=== PATIENT | male | born 1965 | race Caucasian/White ===

== ENCOUNTER 2022-10-13 16:19 | Observation (INO) ==
[2022-10-13] MEDS ORDERED: SODIUM CHLORIDE 0.9% 1000ML 1,000 ML IV SCH (17:00)
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
[2022-10-13 17:24] LABS: Basophils # (auto) 0.07 K/uL (0-0.2); Basophils % (auto) 0.7 %; Eosinophils # (auto) 0.44 K/uL (0-0.50); Eosinophils % (auto) 4.5 %; Hemoglobin 15.9 g/dl (14.0-18.0); Immature Granulocytes # (auto) 0.02 K/uL (0.01-0.20); Immature Granulocytes % (auto) 0.2 %; Lymphocytes % (auto) 34.1 %; Mean Corpuscular Hemoglobin 30.2 pg (25.0-34.0); Mean Corpuscular Hgb Conc 34.6 g/dL (32.0-36.0); Mean Corpuscular Volume 87.3 fL (80.0-100.0); Mean Platelet Volume 10.9 fL (9.4-12.4); Monocytes # (auto) 0.86 K/uL (0.11-0.59); Monocytes % (auto) 8.9 %; Neutrophils # (auto) 4.99 K/uL (1.40-6.50); Neutrophils % (auto) 51.6 %; Platelet Count 316 K/uL (130-400); RDW Standard Deviation 44.7 fL (36.4-46.3); Red Blood Count 5.27 M/uL (4.70-6.10); White Blood Count 9.68 K/ul (4.8-10.8)
[2022-10-13 17:38] LABS: Alanine Aminotransferase 30 U/L (7-52); Albumin Globulin Ratio 1.4 (0.9-2); Albumin Level 4.4 gm/dl (3.4-5.0); Alkaline Phosphatase 112 U/L (34-104); Anion Gap 7 (3-11); Aspartate Aminotransferase 29 U/L (13-39); BUN Creatinine Ratio 10.2 (10-20); Bilirubin,Total 0.9 mg/dl (0.2-1.0); Blood Urea Nitrogen 11 mg/dl (6-23); Calcium 9.9 mg/dl (8.6-10.3); Carbon Dioxide 19 mmol/L (21-32); Chloride 106 mmol/L (98-107); Est GFR (African American) 86.6 ml/min; Est GFR (Non-African American) 74.7 ml/min; Globulin 3.1 gm/dl (2.5-4.0); Glucose 78 mg/dl (70-99(Fasting)); Potassium 4.1 mmol/L (3.5-5.1); Sodium 132 mmol/L (136-145); Total Protein 7.5 gm/dl (6.0-8.3)
[2022-10-13 17:45] LABS: Troponin I High Sensitivity 3.7 pg/ml (0-20)
[2022-10-13 18:02] LABS: Appearance Urine Clear (Clear); Bilirubin Urine Negative (Negative); Blood Urine Negative (Negative); Color Urine Yellow; Glucose Urine UA Negative (Negative); Ketones Urine Negative (Negative); Leukocyte Esterase Urine Negative (Negative); Nitrite Urine Negative (Negative); Protein Urine Negative (Negative); Specific Gravity Urine 1.004 (1.000-1.030); Urobilinogen Urine Negative (Negative); pH Urine 6.5 (4.5-7.5)
[2022-10-13] MEDS ORDERED: SODIUM CHLORIDE 0.9% 1000ML 1,000 ML IV ONE (18:40)
[2022-10-13 18:41] LABS: Amphetamines+Metham, Urine Neg (Neg); Barbiturates, Urine Neg (Neg); Benzodiazepine, Urine Neg (Neg); Cocaine, Urine Neg (Neg); MDMA (Ecstacy), Urine Neg (Neg); Methadone, Urine Neg (Neg); Opiate, Urine Neg (Neg); Phencyclidine, Urine Neg (Neg)
--- NOTE | 2022-10-13 19:30 | XRay Report ---
SINGLE VIEW CHEST CLINICAL HISTORY: Mental health clearance. FINDINGS: 2 AP, portable, semierect chest radiographs are compared to study dated 02/02/2021. The exam ination is degraded by portable technique and apical lordotic positioning. The cardiomediastinal silh ouette is unremarkable. The lungs and pleural spaces are clear. No pneumothorax is seen. The bony tho rax is grossly intact. IMPRESSION: No active disease in the chest. ACT 112: Negative or not required by law. Electronically signed by: Martin Medrano M.D. 10/13/2022 7:28 PM
[2022-10-13] MEDS ORDERED: LACTATED RINGER'S 1,000 ML IV ONE (19:53)
[2022-10-13 20:10] LABS: Acetaminophen < 3 ug/ml (10-30); Salicylate < 3.0 mg/dl (3.0-30)
[2022-10-13] MEDS ORDERED: THIAMINE HCL 100 MG in SYRINGE 9 ML IV STA (21:36)
[2022-10-13] MEDS ORDERED: LORazepam 2 MG/1 ML VIAL IV PRN (21:52)
[2022-10-13] MEDS ORDERED: NICOTINE 21 MG/24 HR TDSY TD STA (21:54)
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
[2022-10-13] MEDS ORDERED: ACETAMINOPHEN 325 MG TAB PO PRN (23:00)
[2022-10-13] MEDS ORDERED: oxyCODONE HCL IR 5 MG TAB (IMMEDIATE RELEASE) PO PRN (23:00)
[2022-10-14] MEDS: GABAPENTIN 300 MG CAP PO SCH ×2 (00:14→08:41)
[2022-10-14] MEDS: levETIRAcetam 500 MG TAB PO SCH ×2 (00:14→08:41)
[2022-10-14] MEDS ORDERED: MELATONIN 3 MG TAB PO PRN (03:09)
[2022-10-14 07:50] LABS: Basophils # (auto) 0.06 K/uL (0-0.2); Basophils % (auto) 1.1 %; Eosinophils # (auto) 0.31 K/uL (0-0.50); Eosinophils % (auto) 5.5 %; Hematocrit (blood only) 44.3 % (42.0-52.0); Hemoglobin 15.1 g/dl (14.0-18.0); Immature Granulocytes # (auto) 0.02 K/uL (0.01-0.20); Immature Granulocytes % (auto) 0.4 %; Lymphocytes % (auto) 42.7 %; Mean Corpuscular Hemoglobin 30.6 pg (25.0-34.0); Mean Corpuscular Hgb Conc 34.1 g/dL (32.0-36.0); Mean Corpuscular Volume 89.9 fL (80.0-100.0); Mean Platelet Volume 10.6 fL (9.4-12.4); Monocytes % (auto) 8.9 %; Neutrophils # (auto) 2.33 K/uL (1.40-6.50); Neutrophils % (auto) 41.4 %; Platelet Count 232 K/uL (130-400); RDW Coefficient of Variation 14.1 % (11.5-14.5); RDW Standard Deviation 45.7 fL (36.4-46.3); Red Blood Count 4.93 M/uL (4.70-6.10); White Blood Count 5.62 K/ul (4.8-10.8)
[2022-10-14 08:31] LABS: BUN Creatinine Ratio 9.4 (10-20); Calcium 8.9 mg/dl (8.6-10.3); Est GFR (African American) 124.2 ml/min; Est GFR (Non-African American) 107.2 ml/min; Potassium 4.4 mmol/L (3.5-5.1)
[2022-10-14] MEDS ORDERED: FOLIC ACID 1 MG TAB PO SCH (09:00)
[2022-10-14] MEDS ORDERED: ENOXAPARIN INJ 40 MG/0.4 ML SYR SQ SCH (09:00)
[2022-10-14] MEDS ORDERED: allopurinoL 100 MG TAB PO SCH (09:00)
[2022-10-14] MEDS ORDERED: THIAMINE HCL 100 MG TAB PO SCH (09:00)
[2022-10-14] MEDS ORDERED: ESCITALOPRAM OXALATE 20 MG TAB PO SCH (09:00)
[2022-10-14] MEDS ORDERED: NICOTINE 21 MG/24 HR TDSY TD SCH (09:00)
[2022-10-14] MEDS ORDERED: CYANOCOBALAMIN (B-12) 500 MCG TABLET PO SCH (09:00)
[2022-10-14] MEDS ORDERED: ATORVASTATIN 40 MG TAB PO SCH (09:00)
--- NOTE | 2022-10-14 10:43 | Electrocardiogram Report ---
Test Reason : Blood Pressure : / mmHG Vent. Rate : 072 BPM Atrial Rate : 072 BPM P-R Int : 146 ms QRS Dur : 078 ms QT Int : 378 ms P-R-T Axes : 044 -07 064 degrees QTc Int : 413 ms Normal sinus rhythm Nonspecific T wave abnormality Abnormal ECG When compared with ECG of 02-FEB-2021 13:50, Nonspecific T wave abnormality now evident in Anterolateral leads Confirmed by Amado Brownlee ([id number]) on 10/14/2022 10:42:54 AM Referred By: REFERRED SELF Confirmed By:Amado Brownlee
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
--- NOTE | 2022-10-14 14:40 | Discharge Summary ---
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 History is obtained from the patient and review of outpatient PCP records. Patient is a poor historian. Patient reports having suicidal ideations for the past 2 years since his has . He decided to call crisis today who advised him to come to the ED for further evaluation. Patient denies suicide attempt. Patient reports he has not been eating very much recently. History of chronic alcohol use however patient reports he quit drinking 1 month ago. Noted negative alcohol level today. Patient denies chest pain and shortness of breath. He reports feeling lightheaded and dizzy today however no syncopal event. No other recent illnesses, fevers, chills. He denies abdominal pain, nausea, vomiting, diarrhea. No urinary symptoms. In the ED, patient was found to be hypotensive. This improved with IVF. Labs unremarkable. Admission Exam Per Admitting Provider Constitutional: WD/WN, vitals as above Eyes: PERRL, conjunctivae normal, anicteric sclerae ENMT: external ear and nose normal, oropharynx normal Respiratory: normal respiratory effort; no respiratory distress Coarse breath sounds bilaterally with expiratory wheezing Cardiovascular: Rate/Rhythm: regular rate and regular rhythm Vessels: normal peripheral pulses Extremities: no edema Gastrointestinal (Abdomen): normal bowel sounds, soft, nontender, no hepatosplenomegaly Musculoskeletal: no cyanosis or clubbing, extremities motor strength 5/5 Skin: no rashes, warm and dry Neurologic: PERRL, EOMI, accommodation nl, no face palsy, no dysarthria Psychiatric: Orientation: alert and oriented x 3 Affect: + depressed affect Suicidal Thoughts: + reports suicidal thoughts Principal Diagnosis Depression with suicidal ideation, hypotension due to home antihypertensives and hypovolemia Discharge Exam General: Lying comfortably in bed, not in distress, on room air HEENT: EOMI, AKBAR, MMM Chest: Clear breath sounds bilaterally, no wheezes or crackles CVS: Regular rate and rhythm, normal heart sounds, no murmur Abdomen: Soft, non tender, not distended, normal bowel sounds Neuro: Awake, alert, oriented, conversing well, non focal Extremities: No cyanosis, clubbing or edema Psych: Calm, cooperative, depressed. On 1:1 Discharge Data Allergies Allergy/AdvReac Type Severity Reaction Status Date / Time pollen extracts Allergy Intermediate ITCHY, Verified 11/21/21 10:07 WATERY EYES, SNEEZING, CONGESTION acetaminophen [From Tylenol] AdvReac Severe PER PT Verified 11/21/21 10:07 "LIVER DAMAGE" UNABLE TO TAKE Consultations 10/13/22 19:50 ED Decision to Admit Stat 10/13/22 23:00 Consult Psychiatry Routine Ordered Studies Laboratory Results WBC 5.62 K/ul (4.8-10.8) 10/14/22 07:11 RBC 4.93 M/uL (4.70-6.10) 10/14/22 07:11 Hgb 15.1 g/dl (14.0-18.0) 10/14/22 07:11 Hct 44.3 % (42.0-52.0) 10/14/22 07:11 MCV 89.9 fL (80.0-100.0) 10/14/22 07:11 MCH 30.6 pg (25.0-34.0) 10/14/22 07:11 MCHC 34.1 g/dL (32.0-36.0) 10/14/22 07:11 RDW Std Deviation 45.7 fL (36.4-46.3) 10/14/22 07:11 RDW Coeff of Nan 14.1 % (11.5-14.5) 10/14/22 07:11 Plt Count 232 K/uL (130-400) 10/14/22 07:11 MPV 10.6 fL (9.4-12.4) 10/14/22 07:11 Immature Gran % (Auto) 0.4 % 10/14/22 07:11 Neut % (Auto) 41.4 % 10/14/22 07:11 Lymph % (Auto) 42.7 % 10/14/22 07:11 Emmet % (Auto) 8.9 % 10/14/22 07:11 Eos % (Auto) 5.5 % 10/14/22 07:11 Baso % (Auto) 1.1 % 10/14/22 07:11 Neut # (Auto) 2.33 K/uL (1.40-6.50) 10/14/22 07:11 Lymph # (Auto) 2.40 K/uL (1.2-3.4) 10/14/22 07:11 Emmet # (Auto) 0.50 K/uL (0.11-0.59) 10/14/22 07:11 Eos # (Auto) 0.31 K/uL (0-0.50) 10/14/22 07:11 Baso # (Auto) 0.06 K/uL (0-0.2) 10/14/22 07:11 Immature Gran # (Auto) 0.02 K/uL (0.01-0.20) 10/14/22 07:11 Sodium 141 mmol/L (136-145) D 10/14/22 07:11 Potassium 4.4 mmol/L (3.5-5.1) 10/14/22 07:11 Chloride 113 mmol/L (98-107) H 10/14/22 07:11 Carbon Dioxide 22 mmol/L (21-32) 10/14/22 07:11 Anion Gap 6 (3-11) 10/14/22 07:11 BUN 6 mg/dl (6-23) 10/14/22 07:11 Creatinine 0.64 mg/dl (0.6-1.4) D 10/14/22 07:11 Est Cr Clr Drug Dosing 96.0 ml/min 10/14/22 07:11 Est GFR ( Amer) 124.2 ml/min 10/14/22 07:11 Est GFR (Non-Af Amer) 107.2 ml/min 10/14/22 07:11 BUN/Creatinine Ratio 9.4 (10-20) L 10/14/22 07:11 Glucose 99 mg/dl (70-99(Fasting)) 10/14/22 07:11 Lactate 1.0 mmol/L (0.4-2.0) 10/13/22 20:25 Calcium 8.9 mg/dl (8.6-10.3) 10/14/22 07:11 Total Bilirubin 0.9 mg/dl (0.2-1.0) 10/13/22 16:47 AST 29 U/L (13-39) 10/13/22 16:47 ALT 30 U/L (7-52) 10/13/22 16:47 Alkaline Phosphatase 112 U/L (34-104) H 10/13/22 16:47 Troponin I High Sens 3.7 pg/ml (0-20) 10/13/22 16:47 Total Protein 7.5 gm/dl (6.0-8.3) 10/13/22 16:47 Albumin 4.4 gm/dl (3.4-5.0) 10/13/22 16:47 Globulin 3.1 gm/dl (2.5-4.0) 10/13/22 16:47 Albumin/Globulin Ratio 1.4 (0.9-2) 10/13/22 16:47 TSH 4.127 uIu/ml (0.300-4.500) 10/13/22 16:47 Random Cortisol 5.79 mcg/dl 10/13/22 16:47 Urine Color Yellow 10/13/22 17:50 Urine Appearance Clear (Clear) 10/13/22 17:50 Urine pH 6.5 (4.5-7.5) 10/13/22 17:50 Ur Specific [place] 1.004 (1.000-1.030) 10/13/22 17:50 Urine Protein Negative (Negative) 10/13/22 17:50 Urine Glucose (UA) Negative (Negative) 10/13/22 17:50 Urine Ketones Negative (Negative) 10/13/22 17:50 Urine Blood Negative (Negative) 10/13/22 17:50 Urine Nitrite Negative (Negative) 10/13/22 17:50 Urine Bilirubin Negative (Negative) 10/13/22 17:50 Urine Urobilinogen Negative (Negative) 10/13/22 17:50 Ur Leukocyte Esterase Negative (Negative) 10/13/22 17:50 Salicylates < 3.0 mg/dl (3.0-30) L 10/13/22 16:47 Urine Opiates Screen Neg (Neg) 10/13/22 17:50 Ur Methadone, Qual Neg (Neg) 10/13/22 17:50 Acetaminophen < 3 ug/ml (10-30) L 10/13/22 16:47 Urine Barbiturates Neg (Neg) 10/13/22 17:50 Ur Phencyclidine (PCP) Neg (Neg) 10/13/22 17:50 U Amphetamin/Meth Scrn Neg (Neg) 10/13/22 17:50 MDMA (Ecstasy) Screen Neg (Neg) 10/13/22 17:50 U Benzodiazepines Scrn Neg (Neg) 10/13/22 17:50 Ur Cocaine Metabolite Neg (Neg) 10/13/22 17:50 U Marijuana (THC) Screen Pos (Neg) H 10/13/22 17:50 Ethyl Alcohol mg/dL < 10.0 mg/dl (<10.0) 10/13/22 16:47 SARS-CoV-2, RNA, NAAT NEGATIVE (NEGATIVE) 10/13/22 17:00 Impressions Chest X-Ray 10/13/22 16:50 SINGLE VIEW CHEST CLINICAL HISTORY: Mental health clearance. FINDINGS: 2 AP, portable, semierect chest radiographs are compared to study dated 02/02/2021. The examination is degraded by portable technique and apical lordotic positioning. The cardiomediastinal silhouette is unremarkable. The lungs and pleural spaces are clear. No pneumothorax is seen. The bony thorax is grossly intact. IMPRESSION: No active disease in the chest. ACT 112: Negative or not required by law. Electronically signed by: Martin Medrano M.D. 10/13/2022 7:28 PM Hospital Course (1) Depression with suicidal ideation: Plan Depression with suicidal ideation- details as the progress note from today. On 1:1. Seen by Psych and being discharged to psych facility for stabilization and safety and meds adjustment. Recommendations noted- continue all [facility] med[facility] exce pt for doxepin which was discontinued due to concern for cardiotoxicity per [facility]. Insomnia- on remeron. Further management per psych. Might benefit from trazodone or melatonin.. Tobacco abuse- Smokes <2 ppd. On nicoderm patch- recommended continuing at psych facility H/o alcohol abuse- sober for >1 month as he could not afford. Hypotension on admission- resolved. Likely due to poor oral intake and his home antihypertensive. Recommend to continue to hold his home antihypertensive and resume one at a time if BP rebounds- this was communicated to psychiatry team. COPD- baseline wheezing. Still smoking. nebs prn. No SOB or hypoxia. seizure disorder, history of traumatic brain injury- on Keppra. Patient is stable to discharge to psych facility. Total Time Total Time Spent Total Time Spent (In Minutes): 35 Discharge Plan Discharge Items Patient Disposition: Home - Self-Care Reason For Visit: HYPOTENSION Discharge Diagnosis: Depression with suicidal ideation Activity: Resume your previous activity Non-emergency contact: Primary Care Provider and Psychiatrist Call non-emergency contact if: you have any medication questions and your symptoms worsen Follow-up/Referrals: Florin Jama MD [Primary Care Provider] - Diet: Regular Addtl Attending Provider Instructions: You are being discharged to psychiatric facility due to your underlying mental health issues. We recommend holding your blood pressure medication due to low blood pressure upon admission and poor oral intake. If BP rebounds, recommend resuming one at a time to make sure it does not tank down. This will be managed by your doctors. We wish you all the best Pending Studies at Discharge: No Stand-Alone Forms: My [facility], Smoking Cessation Medications and DC Order Prescriptions: Continued gabapentin [Neurontin] 300 mg Capsule 300 mg PO BID escitalopram oxalate [Lexapro] 20 mg Tablet 20 mg PO QAM levetiracetam [Keppra] 500 mg Tablet 500 mg PO BID Qty: 60 2RF atorvastatin 40 mg Tablet 40 mg PO QAM thiamine HCl (vitamin B1) 100 mg tablet 100 mg PO DAILY mirtazapine 15 mg tablet 15 mg PO 1XD cyanocobalamin (vitamin B-12) 1,000 mcg Tablet 1,000 mcg PO DAILY allopurinol 100 mg tablet 100 mg PO DAILY folic acid 1 mg Tablet 1 mg PO DAILY Discontinued clonidine HCl 0.1 mg Tablet 0.1 mg PO BID lisinopril 20 mg Tablet 20 mg PO QAM doxepin 50 mg capsule 50 mg PO QAM nifedipine 30 mg tablet extended release 24hr 30 mg PO DAILY potassium chloride 20 mEq Tablet Extended Release 20 meq PO BID Discharge Orders: Discharge Order (Routine); Ordered 10/14/22 Ordered By: Marv Hernadez Admission Data Admit Date/Time: 10/13/22 21:50 Attending Provider: Marv Hernadez Admit Provider: Isaias Kearns Primary Care Provider: Florin Jama Other Providers: Isaias Kearns ; Carmen Hirsch ; Ursula Blunt ; Azar Carter
[2022-10-14] MEDS ORDERED: traZODone HCL 50 MG TAB PO SCH (21:00)
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
[2022-10-16 08:33] LABS: Marijuana Quant, GCMS Urine 112 ng/mL (<5)
== END 2022-10-14 16:16 ==
LOC: ED 16:19 → INTOOBSV 21:50 → 2S 21:50 → 3W 10-14 14:40

== ENCOUNTER 2022-10-14 15:17 | Inpatient (IN) ==
[2022-10-14] MEDS ORDERED: MAGNESIUM HYDROXIDE SUSP 30 ML UDC PO PRN (15:27)
[2022-10-14] MEDS ORDERED: hydrOXYzine HCl 25 MG TAB PO PRN ×2 (15:27)
[2022-10-14] MEDS ORDERED: ALUMINUM/MAGNESIUM SUSP 30 ML UDC PO PRN (15:27)
[2022-10-14] MEDS ORDERED: BISMUTH SUBSALICYLATE LIQD 236 ML PO PRN (15:27)
[2022-10-14] MEDS ORDERED: SODIUM CHLORIDE 0.65% NA SOLN 45 ML (OCEAN) PRN (15:27)
[2022-10-14] MEDS ORDERED: NICOTINE POLACRILEX 2 MG GUM MT PRN (16:52)
[2022-10-14] MEDS ORDERED: Patient's HEIGHT &/or WEIGHT Needed SCH (17:00)
[2022-10-14] MEDS: IBUPROFEN 600 MG TAB PO PRN (20:08)
[2022-10-14] MEDS: GABAPENTIN 300 MG CAP PO SCH (20:59)
[2022-10-14] MEDS: levETIRAcetam 500 MG TAB PO SCH (21:00)
[2022-10-14] MEDS: MIRTAZAPINE TAB 15 MG TAB PO SCH (21:00)
[2022-10-15] MEDS: GABAPENTIN 300 MG CAP PO SCH ×2 (08:54→21:01)
[2022-10-15] MEDS: allopurinoL 100 MG TAB PO SCH (08:54)
[2022-10-15] MEDS: levETIRAcetam 500 MG TAB PO SCH ×2 (08:54→21:01)
[2022-10-15] MEDS: NICOTINE 21 MG/24 HR TDSY TD SCH (08:54)
[2022-10-15] MEDS: ESCITALOPRAM OXALATE 20 MG TAB PO SCH (08:55)
[2022-10-15] MEDS: IBUPROFEN 600 MG TAB PO PRN ×2 (09:06→21:05)
[2022-10-15 09:19] LABS: Vitamin D, 25 Hydrox 11.6 ng/ml (30-100)
[2022-10-15] MEDS: ERGOCALCIFEROL 50,000 UNITS 1250 MCG CAP PO SCH (13:04)
[2022-10-15] MEDS: MIRTAZAPINE TAB 15 MG TAB PO SCH (21:01)
[2022-10-15] MEDS ORDERED: MIRTAZAPINE TAB 15 MG TAB PO SCH (22:00)
[2022-10-16] MEDS: NICOTINE 21 MG/24 HR TDSY TD SCH (08:38)
[2022-10-16] MEDS: ESCITALOPRAM OXALATE 20 MG TAB PO SCH (08:39)
[2022-10-16] MEDS: allopurinoL 100 MG TAB PO SCH (08:39)
[2022-10-16] MEDS: levETIRAcetam 500 MG TAB PO SCH ×2 (08:40→20:54)
[2022-10-16] MEDS: GABAPENTIN 300 MG CAP PO SCH ×2 (08:40→20:54)
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
[2022-10-16] MEDS: lisinopril 20 MG TAB PO SCH (14:03)
--- NOTE | 2022-10-16 14:13 | Psychiatric Progress Note ---
Date of Service October 16, 2022 Impression / Recommendations Impression 57 y/o man with heavy alcohol use history and history of seizure disorder who presents reporting 2 years' depression and intrusive suicidal thoughts in the context of his 's 2 years ago and current severe financial stressors. He's been treated with an SSRI for "depression and anxiety", though it's unclear whether he's evidenced mood symptoms while sober in the past. He appears to have some cognitive impairment consistent with chronic alcohol abuse, previous brain injury, or severe depression. Etiology of depression is unclear - this could represent a major depressive episode, mood disorder with depressive symptoms due to alcohol, mood symptoms due to chronic encephalopathy, or some combination. 10/16/2022: Continues to evidence poor short-term memory (still doesn't think he's using any psychiatric medication, for example) and limited awareness of his needs and resources. One example of this is his saying he "can't walk" due to gout (which he has) but being entirely unaware of his cerebellar ataxia and the fact that his gait is unsteady. Poor recall of previous meetings and discussions with me. It seems increasingly likely that he has chronic memory impairment, possibly as a result of heavy chronic alcohol use, and that he may not be able to meet his care needs alone at home. Appears to be tolerating escitalopram. Continues to complain of initial insomnia on mirtazapine 7.5 mg. It's important to note that pt attributes his drinking to his need to use alcohol for sleep, and that he's previously reported no benefit from any medication he's been prescribed for sleep. Has now been started on ergocalciferol after 25-OH vitamin D level was found to be 11.6 ng/mL. BP has fairly consistently been elevated. Hospitalists had stopped his antihypertensives. Will resume lisinopril and consider resuming clonidine. : Pt is psychiatrically unstable and requires psychiatric admission for stabilization and safety, as well as medication adjustment. (1) Depression, unspecified (2) Alcohol use disorder, severe, dependence (1) Depression, unspecified: Present on Admission?: Yes (2) Alcohol use disorder, severe, dependence: Present on Admission?: Yes (3) Vitamin D deficiency: Present on Admission?: Yes Plan The patient was admitted to the [facility] ([facility] unit) on q15 min checks (behavioral with suicide precautions) for safety. The patient will participate in group, recreational, and milieu therapies and will be offered additional individual and family sessions as clinically appropriate. 10/16/2022: * request Occupational Therapy assessment of pt's ability perform ADL's and of the likelihood that he can safely live alone * continue escitalopram 20 mg daily * increase mirtazapine to 15 mg QHS (for sleep) * resume lisinopril 20 mg daily * continue ergocalciferol 50,000 IU twice weekly for 8 weeks * continue gabapentin 300 mg BID (as anticonvulsant) * continue levetiracetam 500 mg PID (as anticonvulsant) * A private room remains medically necessary for the safety of self and others due to his irritability and cerebellar ataxia 10/15/2022: * strive to obtain information from pt's outpatient therapist (if, in fact, he has one) * continue escitalopram 20 mg daily * continue mirtazapine 7.5 mg QHS (for sleep) * ergocalciferol 50,000 IU twice weekly for 8 weeks * continue gabapentin 300 mg BID (as anticonvulsant) * continue levetiracetam 500 mg PID (as anticonvulsant) * A private room remains medically necessary for the safety of self and others due to his irritability and cerebellar ataxia Inventory Assets Strengths: voluntary Needs: safety and stabilization, medication adjustment, additional coping skills, increased outpatient services, case management Suicide Risk Level Suicide Risk Level: High-Moderate (q15 min suicide checks) Suicide Risk Level Comments: has reported consistent suicidal thoughts with multiple possible "means" of acting upon them, none available in the hospital Risk Factors Assessment Do You Have Access To A Gun?: No Interval History Identifying Information AIDA CANELA is a 57-year-old M who currently lives in alone, has a history of alcohol dependence, and was admitted on 10/14/22 16:21 on a 201 voluntary commitment for suicidal thoughts. Chief Complaint "I have nowhere to go". Review of Systems Sleep Information Total Hours of Sleep: 4.75 Sleep Comments: Received Vistaril for difficulty sleeping Meal Information Percent Meal Consumed - Breakfast: 100 Percent Meal Consumed - Lunch: 100 Percent Meal Consumed - Dinner: 95 Subjective Subjective Patient was seen & assessed and interval progress reviewed in multidisciplinary meeting with the treatment team Physical Exam Psychiatric Orientation: alert, oriented to person, oriented to place and oriented to time Apperance: + disheveled; + did not appear stated age (appears older than stated age) Eye Contact: + poor eye contact Motor Behavior: + psychomotor retardation Speech: + abnormal rate/rhythm/volume of speech (increased latency of response, slow, quiet, brief) Affect: + blunted affect Mood: + anxious mood and + dysphoric mood Thought Process: + concrete thought process Thought Content: + preoccupation (financial strains), + cognitive distortions and + persecution (bank account "maybe being drained" by others) Suicidal Thoughts: denies suicidal intent; + reports suicidal thoughts and + reports suicidal plan (various automotive-related "means" reported; see admission HPI) Homicidal Thoughts: denies homicidal thoughts (mentioned vague thoughts he "could have killed 50 asians" at the bus stop) Hallucinations: + visual hallucinations ("maybe"); no auditory hallucinations and no tactile hallucinations Cognition: language grossly intact; + recent memory not intact, + remote memory not intact and + attention not intact Estimated Intelligence: average estimated intelligence Insight: + poor insight Judgment: + limited judgement Vital Signs (Past 24 Hours) Last Vital Signs Temp 36.5 C 10/16/22 06:44 Pulse 62 10/16/22 06:44 Resp 16 10/16/22 06:44 BP 176/111 H 10/16/22 06:44 Pulse Ox 96 10/14/22 17:44 O2 Del Method Room Air 10/14/22 17:44 Results & Data ([facility]) Current Inpatient Medications Current Inpatient Medications: Current Inpatient Medications Al Hydrox/Mg Hydrox/Simethicone (Aluminum/Magnesium Susp 30 Ml Udc) 30 ml PO Q4H PRN PRN Reason: GI Upset Stop: 11/13/22 15:26 Allopurinol (Allopurinol 100 Mg Tab) 100 mg PO DAILY [facility] Stop: 11/14/22 08:59 Last Admin: 10/16/22 08:39 Dose: 100 mg Bismuth Subsalicylate (Bismuth Subsalicylate Liqd 236 Ml) 15 ml PO PRN PRN PRN Reason: Loose Stool Stop: 11/13/22 15:26 Ergocalciferol (Ergocalciferol 50,000 Units 1250 Mcg Cap) 50,000 units PO SuWe@0900 [facility] Stop: 11/14/22 12:59 Last Admin: 10/15/22 13:04 Dose: 50,000 units Escitalopram Oxalate (Escitalopram Oxalate 20 Mg Tab) 20 mg PO QAM [facility] Stop: 11/14/22 08:59 Last Admin: 10/16/22 08:39 Dose: 20 mg Gabapentin (Gabapentin 300 Mg Cap) 300 mg PO BID [facility] Stop: 11/13/22 20:59 Last Admin: 10/16/22 08:40 Dose: 300 mg Hydroxyzine HCl (Hydroxyzine Hcl 25 Mg Tab) 50 mg PO HSZ PRN PRN Reason: Insomnia Stop: 11/13/22 15:26 Last Admin: 10/16/22 01:09 Dose: 50 mg Hydroxyzine HCl (Hydroxyzine Hcl 25 Mg Tab) 25 mg PO Q4H PRN PRN Reason: Anxiety Stop: 11/13/22 15:26 Ibuprofen (Ibuprofen 600 Mg Tab) 600 mg PO QID PRN PRN Reason: Pain Stop: 11/13/22 20:59 Last Admin: 10/15/22 21:05 Dose: 600 mg Levetiracetam (Levetiracetam 500 Mg Tab) 500 mg PO BID [facility] Stop: 11/13/22 20:59 Last Admin: 10/16/22 08:40 Dose: 500 mg Magnesium Hydroxide (Magnesium Hydroxide Susp 30 Ml Udc) 30 ml PO DAILY PRN PRN Reason: Constipation Stop: 11/13/22 15:26 Mirtazapine (Mirtazapine Tab 15 Mg Tab) 7.5 mg PO HS [facility] Stop: 11/13/22 21:59 Last Admin: 10/15/22 21:01 Dose: 7.5 mg Miscellaneous (Remove Nicoderm Patch) 1 each N/A DAILY@0859 [facility] Stop: 11/14/22 08:58 Last Admin: 10/16/22 08:42 Dose: 1 each Nicotine (Nicotine 21 Mg/24 Hr Tdsy) 21 mg TD QAM [facility] Stop: 11/14/22 08:59 Last Admin: 10/16/22 08:38 Dose: 21 mg Nicotine Polacrilex (Nicotine Polacrilex 2 Mg Gum) 2 piece MT PRN PRN PRN Reason: nicotine withdrawal Stop: 11/13/22 16:51 Sodium Chloride (Sodium Chloride 0.65% Na Soln 45 Ml ([place])) 1 - 2 sprays NA PRN PRN PRN Reason: Nasal Dryness/Congestion Stop: 11/13/22 15:26 Mental Health & Subst Abuse Tx Therapist Name of Therapist: Valeriano Stuart Electrician Substation Supervisor Name of Electrician Substation Supervisor: Valeriano Stuart Post Discharge Appointments Primary Care Physician Name Of Family Doctor/PCP: Marina
[2022-10-16] MEDS: IBUPROFEN 600 MG TAB PO PRN (18:35)
[2022-10-16] MEDS: MIRTAZAPINE TAB 15 MG TAB PO SCH (20:54)
[2022-10-17] MEDS: ESCITALOPRAM OXALATE 20 MG TAB PO SCH (08:49)
[2022-10-17] MEDS: GABAPENTIN 300 MG CAP PO SCH ×2 (08:49→21:41)
[2022-10-17] MEDS: allopurinoL 100 MG TAB PO SCH (08:49)
[2022-10-17] MEDS: lisinopril 20 MG TAB PO SCH (08:50)
[2022-10-17] MEDS: levETIRAcetam 500 MG TAB PO SCH ×2 (08:50→21:41)
[2022-10-17] MEDS: NICOTINE 21 MG/24 HR TDSY TD SCH (08:54)
--- NOTE | 2022-10-17 10:17 | Psychiatric Progress Note ---
Date of Service October 17, 2022 Impression / Recommendations Impression 57 y/o man with heavy alcohol use history and history of seizure disorder who presents reporting 2 years' depression and intrusive suicidal thoughts in the context of his 's 2 years ago and current severe financial stressors. He's been treated with an SSRI for "depression and anxiety", though it's unclear whether he's evidenced mood symptoms while sober in the past. He appears to have some cognitive impairment consistent with chronic alcohol abuse, previous brain injury, or severe depression. Etiology of depression is unclear - this could represent a major depressive episode, mood disorder with depressive symptoms due to alcohol, mood symptoms due to chronic encephalopathy, or some combination. 10/17/2022: Asleep on rounds this morning, a little difficult to awaken, then immediately reports he "can't sleep at all". Confabulates discussion with me last night, doesn't recall the actual discussion we'd had earlier in the day. Still does not remember that he's taking an antidepressant. Tells me with concern about his high blood pressure of "120 over 72" - in fact, it had been much higher and lisinopril was resumed. BP is low-normal (101/67) at this time, suggesting no need to resume clonidine at this time. No longer reports any suicidal thoughts. Remains preoccupied with his numerous losses and medical problems. Treatment team discussed the concern that pt seems unlikely to be able to manage safely at home due to his apparent cognitive impairments. 10/16/2022: Continues to evidence poor short-term memory (still doesn't think he's using any psychiatric medication, for example) and limited awareness of his needs and resources. One example of this is his saying he "can't walk" due to gout (which he has) but being entirely unaware of his cerebellar ataxia and the fact that his gait is unsteady. Poor recall of previous meetings and discussions with me. It seems increasingly likely that he has chronic memory impairment, possibly as a result of heavy chronic alcohol use, and that he may not be able to meet his care needs alone at home. Appears to be tolerating escitalopram. Continues to complain of initial insomnia on mirtazapine 7.5 mg. It's important to note that pt attributes his drinking to his need to use alcohol for sleep, and that he's previously reported no benefit from any medication he's been prescribed for sleep. Has now been started on ergocalciferol after 25-OH vitamin D level was found to be 11.6 ng/mL. BP has fairly consistently been elevated. Hospitalists had stopped his antihypertensives. Will resume lisinopril and consider resuming clonidine. : Pt is psychiatrically unstable and requires psychiatric admission for stabilization and safety, as well as medication adjustment. (1) Depression, unspecified (2) Alcohol use disorder, severe, dependence (1) Depression, unspecified: (2) Alcohol use disorder, severe, dependence: (3) Vitamin D deficiency: Plan The patient was admitted to the [facility] ([facility]) on q15 min checks (behavioral with suicide precautions) for safety. The patient will participate in group, recreational, and milieu therapies and will be offered additional individual and family sessions as clinically appropriate. 10/17/2025: * await Occupational Therapy assessment of pt's ability perform ADL's and of the likelihood that he can safely live alone * continue escitalopram 20 mg daily * continue mirtazapine 15 mg QHS (for sleep) * continue lisinopril 20 mg daily * continue ergocalciferol 50,000 IU twice weekly for 8 weeks * continue gabapentin 300 mg BID (as anticonvulsant) * continue levetiracetam 500 mg PID (as anticonvulsant) * A private room remains medically necessary for the safety of self and others due to his irritability and cerebellar ataxia 10/16/2022: * request Occupational Therapy assessment of pt's ability perform ADL's and of the likelihood that he can safely live alone * continue escitalopram 20 mg daily * increase mirtazapine to 15 mg QHS (for sleep) * resume lisinopril 20 mg daily * continue ergocalciferol 50,000 IU twice weekly for 8 weeks * continue gabapentin 300 mg BID (as anticonvulsant) * continue levetiracetam 500 mg PID (as anticonvulsant) * A private room remains medically necessary for the safety of self and others due to his irritability and cerebellar ataxia 10/15/2022: * strive to obtain information from pt's outpatient therapist (if, in fact, he has one) * continue escitalopram 20 mg daily * continue mirtazapine 7.5 mg QHS (for sleep) * ergocalciferol 50,000 IU twice weekly for 8 weeks * continue gabapentin 300 mg BID (as anticonvulsant) * continue levetiracetam 500 mg PID (as anticonvulsant) * A private room remains medically necessary for the safety of self and others due to his irritability and cerebellar ataxia Inventory Assets Strengths: voluntary Needs: safety and stabilization, medication adjustment, additional coping skills, increased outpatient services, case management Suicide Risk Level Suicide Risk Level: High-Moderate (q15 min suicide checks) Suicide Risk Level Comments: has reported consistent suicidal thoughts with multiple possible "means" of acting upon them, none available in the hospital Risk Factors Assessment Male: Yes : Yes Do You Have Access To A Gun?: No Health Problems: Yes Mental Health Diagnoses: Yes Substance Use Disorders: Yes Previous Attempt: No Previous Psychiatric Hospitalization: No Protective Factors Assessment : No Employed: No Stable Relationships: No Interval History Identifying Information AIDA CANELA is a 57-year-old M who currently lives in alone, has a history of alcohol dependence, and was admitted on 10/14/22 16:21 on a 201 voluntary commitment for suicidal thoughts. Chief Complaint "I just can't sleep" (said after I had to awaken him). Review of Systems Sleep Information Total Hours of Sleep: 7.5 Sleep Comments: Received Vistaril for difficulty sleeping Meal Information Percent Meal Consumed - Breakfast: 100 Percent Meal Consumed - Lunch: 100 Percent Meal Consumed - Dinner: 90 Subjective Subjective Patient was seen & assessed and interval progress reviewed in a multidisciplinary team meeting with the treatment team. For details, see the "Impression" section below. Physical Exam Psychiatric Orientation: alert, oriented to person, oriented to place and cooperative (superficially); + not oriented to time (gives yesterday's day of the week, uncertain of date) Apperance: + disheveled; + did not appear stated age (appears older than stated age) Eye Contact: + fair eye contact Motor Behavior: + unsteady gait or station (cerebellar ataxia, antalgic gait) Speech: normal rate/rhythm/volume of speech Affect: + constricted affect Mood: + anxious mood and + dysphoric mood Thought Process: + confabulations Thought Content: + preoccupation (financial strains), + cognitive distortions and + persecution (bank account "maybe being drained" by others) Suicidal Thoughts: denies suicidal thoughts, denies suicidal plan and denies suicidal intent Homicidal Thoughts: denies homicidal thoughts (mentioned vague thoughts he "could have killed 50 asians" at the bus stop) Hallucinations: + visual hallucinations ("maybe"); no auditory hallucinations and no tactile hallucinations Cognition: language grossly intact; + recent memory not intact, + remote memory not intact and + attention not intact Estimated Intelligence: average estimated intelligence Insight: + poor insight Judgment: + limited judgement Vital Signs (Past 24 Hours) Last Vital Signs Temp 36.5 C 10/17/22 06:40 Pulse 69 10/17/22 06:41 Resp 18 10/17/22 06:40 BP 101/67 10/17/22 06:41 Pulse Ox 96 10/14/22 17:44 O2 Del Method Room Air 10/14/22 17:44 Results & Data ([facility]) Current Inpatient Medications Current Inpatient Medications: Current Inpatient Medications Al Hydrox/Mg Hydrox/Simethicone (Aluminum/Magnesium Susp 30 Ml Udc) 30 ml PO Q4H PRN PRN Reason: GI Upset Stop: 11/13/22 15:26 Allopurinol (Allopurinol 100 Mg Tab) 100 mg PO DAILY [facility] Stop: 11/14/22 08:59 Last Admin: 10/17/22 08:49 Dose: 100 mg Bismuth Subsalicylate (Bismuth Subsalicylate Liqd 236 Ml) 15 ml PO PRN PRN PRN Reason: Loose Stool Stop: 11/13/22 15:26 Ergocalciferol (Ergocalciferol 50,000 Units 1250 Mcg Cap) 50,000 units PO SuWe@0900 [facility] Stop: 11/14/22 12:59 Last Admin: 10/15/22 13:04 Dose: 50,000 units Escitalopram Oxalate (Escitalopram Oxalate 20 Mg Tab) 20 mg PO QAM [facility] Stop: 11/14/22 08:59 Last Admin: 10/17/22 08:49 Dose: 20 mg Gabapentin (Gabapentin 300 Mg Cap) 300 mg PO BID [facility] Stop: 11/13/22 20:59 Last Admin: 10/17/22 08:49 Dose: 300 mg Hydroxyzine HCl (Hydroxyzine Hcl 25 Mg Tab) 50 mg PO HSZ PRN PRN Reason: Insomnia Stop: 11/13/22 15:26 Last Admin: 10/16/22 01:09 Dose: 50 mg Hydroxyzine HCl (Hydroxyzine Hcl 25 Mg Tab) 25 mg PO Q4H PRN PRN Reason: Anxiety Stop: 11/13/22 15:26 Ibuprofen (Ibuprofen 600 Mg Tab) 600 mg PO QID PRN PRN Reason: Pain Stop: 11/13/22 20:59 Last Admin: 10/16/22 18:35 Dose: 600 mg Levetiracetam (Levetiracetam 500 Mg Tab) 500 mg PO BID [facility] Stop: 11/13/22 20:59 Last Admin: 10/17/22 08:50 Dose: 500 mg Lisinopril (Lisinopril 20 Mg Tab) 20 mg PO QAM [facility] Stop: 11/15/22 12:59 Last Admin: 10/17/22 08:50 Dose: 20 mg Magnesium Hydroxide (Magnesium Hydroxide Susp 30 Ml Udc) 30 ml PO DAILY PRN PRN Reason: Constipation Stop: 11/13/22 15:26 Mirtazapine (Mirtazapine Tab 15 Mg Tab) 15 mg PO HS [facility] Stop: 11/15/22 21:59 Last Admin: 10/16/22 20:54 Dose: 15 mg Miscellaneous (Remove Nicoderm Patch) 1 each N/A DAILY@0859 [facility] Stop: 11/14/22 08:58 Last Admin: 10/17/22 08:55 Dose: 1 each Nicotine (Nicotine 21 Mg/24 Hr Tdsy) 21 mg TD QAM [facility] Stop: 11/14/22 08:59 Last Admin: 10/17/22 08:54 Dose: 21 mg Nicotine Polacrilex (Nicotine Polacrilex 2 Mg Gum) 2 piece MT PRN PRN PRN Reason: nicotine withdrawal Stop: 11/13/22 16:51 Sodium Chloride (Sodium Chloride 0.65% Na Soln 45 Ml ([place])) 1 - 2 sprays NA PRN PRN PRN Reason: Nasal Dryness/Congestion Stop: 11/13/22 15:26 Mental Health & Subst Abuse Tx Therapist Name of Therapist: Valeriano Stuart Publication Director Name of Publication Director: Valeriano Stuart Post Discharge Appointments Primary Care Physician Name Of Family Doctor/PCP: Marina
[2022-10-17] MEDS: IBUPROFEN 600 MG TAB PO PRN (21:40)
[2022-10-17] MEDS: MIRTAZAPINE TAB 15 MG TAB PO SCH (21:42)
[2022-10-18] MEDS: ERGOCALCIFEROL 50,000 UNITS 1250 MCG CAP PO SCH (09:09)
[2022-10-18] MEDS: ESCITALOPRAM OXALATE 20 MG TAB PO SCH (09:09)
[2022-10-18] MEDS: lisinopril 20 MG TAB PO SCH (09:09)
[2022-10-18] MEDS: GABAPENTIN 300 MG CAP PO SCH ×2 (09:09→21:27)
[2022-10-18] MEDS: levETIRAcetam 500 MG TAB PO SCH ×2 (09:09→21:27)
[2022-10-18] MEDS: allopurinoL 100 MG TAB PO SCH (09:09)
[2022-10-18] MEDS: NICOTINE 21 MG/24 HR TDSY TD SCH (09:10)
--- NOTE | 2022-10-18 10:15 | Psychiatric Progress Note ---
Date of Service October 18, 2022 Impression / Recommendations Impression 57 y/o man with heavy alcohol use history and history of seizure disorder who presents reporting 2 years' depression and intrusive suicidal thoughts in the context of his 's 2 years ago and current severe financial stressors. He's been treated with an SSRI for "depression and anxiety", though it's unclear whether he's evidenced mood symptoms while sober in the past. He appears to have some cognitive impairment consistent with chronic alcohol abuse, previous brain injury, or severe depression. Etiology of depression is unclear - this could represent a major depressive episode, mood disorder with depressive symptoms due to alcohol, mood symptoms due to chronic encephalopathy, or some combination. 10/18/2022: Continues to sleep late in the morning and to nap extensively during the day, then complain of poor sleep at night. In my opinion this subjective insomnia is likely the result of poor sleep hygiene. Having more hypertensive episodes, so plan to resume clonidine. OT evaluation was reassuring in terms of pt's ability to meet his care needs safely at home. They did note that he has no driving license and his car is unregistered so he drives only at night. His cognition appears to be improving slowly, most likely as a result of continued alcohol abstinence while in the hospital. He remains forgetful at times. Discussed the treatment team's recommendation of alcohol EZRA treatment. Pt has "done rehab before" and is open to this, as he thinks he's benefitted in the past. Discussed naltrexone, in which pt is not currently interested. 10/17/2022: Asleep on rounds this morning, a little difficult to awaken, then immediately reports he "can't sleep at all". Confabulates discussion with me last night, doesn't recall the actual discussion we'd had earlier in the day. Still does not remember that he's taking an antidepressant. Tells me with concern about his high blood pressure of "120 over 72" - in fact, it had been much higher and lisinopril was resumed. BP is low-normal (101/67) at this time, suggesting no need to resume clonidine at this time. No longer reports any suicidal thoughts. Remains preoccupied with his numerous losses and medical problems. Treatment team discussed the concern that pt seems unlikely to be able to manage safely at home due to his apparent cognitive impairments. 10/16/2022: Continues to evidence poor short-term memory (still doesn't think he's using any psychiatric medication, for example) and limited awareness of his needs and resources. One example of this is his saying he "can't walk" due to gout (which he has) but being entirely unaware of his cerebellar ataxia and the fact that his gait is unsteady. Poor recall of previous meetings and discussions with me. It seems increasingly likely that he has chronic memory impairment, possibly as a result of heavy chronic alcohol use, and that he may not be able to meet his care needs alone at home. Appears to be tolerating escitalopram. Continues to complain of initial insomnia on mirtazapine 7.5 mg. It's important to note that pt attributes his drinking to his need to use alcohol for sleep, and that he's previously reported no benefit from any medication he's been prescribed for sleep. Has now been started on ergocalciferol after 25-OH vitamin D level was found to be 11.6 ng/mL. BP has fairly consistently been elevated. Hospitalists had stopped his antihypertensives. Will resume lisinopril and consider resuming clonidine. : Pt is psychiatrically unstable and requires psychiatric admission for stabilization and safety, as well as medication adjustment. (1) Depression, unspecified (2) Alcohol use disorder, severe, dependence (1) Depression, unspecified: (2) Alcohol use disorder, severe, dependence: (3) Vitamin D deficiency: Plan The patient was admitted to the [facility] ([facility]) on q15 min checks (behavioral with suicide precautions) for safety. The patient will participate in group, recreational, and milieu therapies and will be offered additional individual and family sessions as clinically appropriate. 10/18/2022: * investigate options for alcohol EZRA treatment * continue to encourage consideration of oral naltrexone trial * continue escitalopram 20 mg daily * continue mirtazapine 15 mg QHS (for sleep) * continue lisinopril 20 mg daily * continue ergocalciferol 50,000 IU twice weekly for 8 weeks * continue gabapentin 300 mg BID (as anticonvulsant) * continue levetiracetam 500 mg PID (as anticonvulsant) * A private room no longer appears medically necessary 10/17/2025: * await Occupational Therapy assessment of pt's ability perform ADL's and of the likelihood that he can safely live alone * continue escitalopram 20 mg daily * continue mirtazapine 15 mg QHS (for sleep) * continue lisinopril 20 mg daily * continue ergocalciferol 50,000 IU twice weekly for 8 weeks * continue gabapentin 300 mg BID (as anticonvulsant) * continue levetiracetam 500 mg PID (as anticonvulsant) * A private room remains medically necessary for the safety of self and others due to his irritability and cerebellar ataxia 10/16/2022: * request Occupational Therapy assessment of pt's ability perform ADL's and of the likelihood that he can safely live alone * continue escitalopram 20 mg daily * increase mirtazapine to 15 mg QHS (for sleep) * resume lisinopril 20 mg daily * continue ergocalciferol 50,000 IU twice weekly for 8 weeks * continue gabapentin 300 mg BID (as anticonvulsant) * continue levetiracetam 500 mg PID (as anticonvulsant) * A private room remains medically necessary for the safety of self and others due to his irritability and cerebellar ataxia 10/15/2022: * strive to obtain information from pt's outpatient therapist (if, in fact, he has one) * continue escitalopram 20 mg daily * continue mirtazapine 7.5 mg QHS (for sleep) * ergocalciferol 50,000 IU twice weekly for 8 weeks * continue gabapentin 300 mg BID (as anticonvulsant) * continue levetiracetam 500 mg PID (as anticonvulsant) * A private room remains medically necessary for the safety of self and others due to his irritability and cerebellar ataxia Inventory Assets Strengths: voluntary Needs: safety and stabilization, medication adjustment, additional coping skills, increased outpatient services, case management Suicide Risk Level Suicide Risk Level: High-Moderate (q15 min suicide checks) Suicide Risk Level Comments: has reported consistent suicidal thoughts with multiple possible "means" of acting upon them, none available in the hospital Risk Factors Assessment Male: Yes : Yes Do You Have Access To A Gun?: No Health Problems: Yes Mental Health Diagnoses: Yes Substance Use Disorders: Yes Previous Attempt: No Previous Psychiatric Hospitalization: No Protective Factors Assessment : No Employed: No Stable Relationships: No Interval History Identifying Information AIDA CANELA is a 57-year-old M who currently lives in alone, has a history of alcohol dependence, and was admitted on 10/14/22 16:21 on a 201 voluntary commitment for suicidal thoughts. Chief Complaint "[]". Review of Systems Sleep Information Total Hours of Sleep: 6.5 Sleep Comments: Received Vistaril for difficulty sleeping Meal Information Percent Meal Consumed - Breakfast: 90 Percent Meal Consumed - Lunch: 75 Percent Meal Consumed - Dinner: 50 Subjective Subjective Patient was seen & assessed and interval progress reviewed in a multidisciplinary team meeting with the treatment team. For details, see the "Impression" section below. Physical Exam Psychiatric Orientation: alert, oriented to person, oriented to place, oriented to time and cooperative (superficially) Apperance: appropriately dressed and appropriately groomed; + did not appear stated age (appears older than stated age) Eye Contact: + fair eye contact Motor Behavior: + unsteady gait or station (cerebellar ataxia, antalgic gait) Speech: normal rate/rhythm/volume of speech Affect: + constricted affect Mood: + anxious mood and + dysphoric mood Thought Process: + concrete thought process Thought Content: + preoccupation (financial strains), + cognitive distortions and + persecution (bank account "maybe being drained" by others) Suicidal Thoughts: denies suicidal thoughts, denies suicidal plan and denies suicidal intent Homicidal Thoughts: denies homicidal thoughts (mentioned vague thoughts he "could have killed 50 asians" at the bus stop) Hallucinations: + visual hallucinations ("maybe"); no auditory hallucinations and no tactile hallucinations Cognition: language grossly intact; + recent memory not intact, + remote memory not intact and + attention not intact Estimated Intelligence: average estimated intelligence Insight: + poor insight Judgment: + limited judgement Vital Signs (Past 24 Hours) Last Vital Signs Temp 36.8 C 10/18/22 06:33 Pulse 65 10/18/22 06:34 Resp 16 10/18/22 06:33 BP 173/100 H 10/18/22 06:34 Pulse Ox 96 10/14/22 17:44 O2 Del Method Room Air 10/14/22 17:44 Results & Data ([facility]) Current Inpatient Medications Current Inpatient Medications: Current Inpatient Medications Al Hydrox/Mg Hydrox/Simethicone (Aluminum/Magnesium Susp 30 Ml Udc) 30 ml PO Q4H PRN PRN Reason: GI Upset Stop: 11/13/22 15:26 Allopurinol (Allopurinol 100 Mg Tab) 100 mg PO DAILY MARGARET Stop: 11/14/22 08:59 Last Admin: 10/18/22 09:09 Dose: 100 mg Bismuth Subsalicylate (Bismuth Subsalicylate Liqd 236 Ml) 15 ml PO PRN PRN PRN Reason: Loose Stool Stop: 11/13/22 15:26 Ergocalciferol (Ergocalciferol 50,000 Units 1250 Mcg Cap) 50,000 units PO SuWe@0900 [facility] Stop: 11/14/22 12:59 Last Admin: 10/18/22 09:09 Dose: 50,000 units Escitalopram Oxalate (Escitalopram Oxalate 20 Mg Tab) 20 mg PO QAM [facility] Stop: 11/14/22 08:59 Last Admin: 10/18/22 09:09 Dose: 20 mg Gabapentin (Gabapentin 300 Mg Cap) 300 mg PO BID [facility] Stop: 11/13/22 20:59 Last Admin: 10/18/22 09:09 Dose: 300 mg Hydroxyzine HCl (Hydroxyzine Hcl 25 Mg Tab) 50 mg PO HSZ PRN PRN Reason: Insomnia Stop: 11/13/22 15:26 Last Admin: 10/16/22 01:09 Dose: 50 mg Hydroxyzine HCl (Hydroxyzine Hcl 25 Mg Tab) 25 mg PO Q4H PRN PRN Reason: Anxiety Stop: 11/13/22 15:26 Ibuprofen (Ibuprofen 600 Mg Tab) 600 mg PO QID PRN PRN Reason: Pain Stop: 11/13/22 20:59 Last Admin: 10/17/22 21:40 Dose: 600 mg Levetiracetam (Levetiracetam 500 Mg Tab) 500 mg PO BID [facility] Stop: 11/13/22 20:59 Last Admin: 10/18/22 09:09 Dose: 500 mg Lisinopril (Lisinopril 20 Mg Tab) 20 mg PO QAM [facility] Stop: 11/15/22 12:59 Last Admin: 10/18/22 09:09 Dose: 20 mg Magnesium Hydroxide (Magnesium Hydroxide Susp 30 Ml Udc) 30 ml PO DAILY PRN PRN Reason: Constipation Stop: 11/13/22 15:26 Mirtazapine (Mirtazapine Tab 15 Mg Tab) 15 mg PO HS [facility] Stop: 11/15/22 21:59 Last Admin: 10/17/22 21:42 Dose: 15 mg Miscellaneous (Remove Nicoderm Patch) 1 each N/A DAILY@0859 [facility] Stop: 11/14/22 08:58 Last Admin: 10/18/22 09:14 Dose: 1 each Nicotine (Nicotine 21 Mg/24 Hr Tdsy) 21 mg TD QAM [facility] Stop: 11/14/22 08:59 Last Admin: 10/18/22 09:10 Dose: 21 mg Nicotine Polacrilex (Nicotine Polacrilex 2 Mg Gum) 2 piece MT PRN PRN PRN Reason: nicotine withdrawal Stop: 11/13/22 16:51 Sodium Chloride (Sodium Chloride 0.65% Na Soln 45 Ml ([place])) 1 - 2 sprays NA PRN PRN PRN Reason: Nasal Dryness/Congestion Stop: 11/13/22 15:26 Mental Health & Subst Abuse Tx Therapist Name of Therapist: Valeriano Stuart Locomotive Electrician Name of Locomotive Electrician: Valeriano Stuart Post Discharge Appointments Primary Care Physician Name Of Family Doctor/PCP: Marina
[2022-10-18] MEDS: IBUPROFEN 600 MG TAB PO PRN (20:23)
[2022-10-18] MEDS: cloNIDine HCL 0.1 MG TAB PO SCH (21:27)
[2022-10-18] MEDS: MIRTAZAPINE TAB 15 MG TAB PO SCH (21:27)
[2022-10-19] MEDS: NICOTINE 21 MG/24 HR TDSY TD SCH (09:39)
[2022-10-19] MEDS: lisinopril 20 MG TAB PO SCH (09:40)
[2022-10-19] MEDS: GABAPENTIN 300 MG CAP PO SCH ×2 (09:40→20:38)
[2022-10-19] MEDS: cloNIDine HCL 0.1 MG TAB PO SCH ×2 (09:40→20:38)
[2022-10-19] MEDS: ESCITALOPRAM OXALATE 20 MG TAB PO SCH (09:40)
[2022-10-19] MEDS: levETIRAcetam 500 MG TAB PO SCH ×2 (09:40→20:38)
[2022-10-19] MEDS: allopurinoL 100 MG TAB PO SCH (09:40)
--- NOTE | 2022-10-19 12:44 | Psychiatric Progress Note ---
Date of Service October 19, 2022 Impression / Recommendations Impression 57 y/o man with heavy alcohol use history and history of seizure disorder who presents reporting 2 years' depression and intrusive suicidal thoughts in the context of his 's 2 years ago and current severe financial stressors. He's been treated with an SSRI for "depression and anxiety", though it's unclear whether he's evidenced mood symptoms while sober in the past. He appears to have some cognitive impairment consistent with chronic alcohol abuse, previous brain injury, or severe depression. Etiology of depression is unclear - this could represent a major depressive episode, mood disorder with depressive symptoms due to alcohol, mood symptoms due to chronic encephalopathy, or some combination. 10/19/2022: As pt's cognition has cleared, he has become more selective about treatments and has been exhibiting a supercilious attitude towards staff. Has been dismissive of one EZRA facility that might be an option while bemoaning that an option he prefers is not covered by his insurance. Discussed the need to consider seriously the options that are realistically available. Pt no longer voices any suicidal thoughts and now appears capable of managing safely outside the hospital. He does not appear to have any housing options at all. Anticipate discharge tomorrow. I recommend transfer to a EZRA program, but am certainly not going to force this on pt. 10/18/2022: Continues to sleep late in the morning and to nap extensively during the day, then complain of poor sleep at night. In my opinion this subjective insomnia is likely the result of poor sleep hygiene. Having more hypertensive episodes, so plan to resume clonidine. OT evaluation was reassuring in terms of pt's ability to meet his care needs safely at home. They did note that he has no driving license and his car is unregistered so he drives only at night. His cognition appears to be improving slowly, most likely as a result of continued alcohol abstinence while in the hospital. He remains forgetful at times. Discussed the treatment team's recommendation of alcohol EZRA treatment. Pt has "done rehab before" and is open to this, as he thinks he's benefitted in the past. Discussed naltrexone, in which pt is not currently interested. 10/17/2022: Asleep on rounds this morning, a little difficult to awaken, then immediately reports he "can't sleep at all". Confabulates discussion with me last night, doesn't recall the actual discussion we'd had earlier in the day. Still does not remember that he's taking an antidepressant. Tells me with concern about his high blood pressure of "120 over 72" - in fact, it had been much higher and lisinopril was resumed. BP is low-normal (101/67) at this time, suggesting no need to resume clonidine at this time. No longer reports any suicidal thoughts. Remains preoccupied with his numerous losses and medical problems. Treatment team discussed the concern that pt seems unlikely to be able to manage safely at home due to his apparent cognitive impairments. 10/16/2022: Continues to evidence poor short-term memory (still doesn't think he's using any psychiatric medication, for example) and limited awareness of his needs and resources. One example of this is his saying he "can't walk" due to gout (which he has) but being entirely unaware of his cerebellar ataxia and the fact that his gait is unsteady. Poor recall of previous meetings and discussions with me. It seems increasingly likely that he has chronic memory impairment, possibly as a result of heavy chronic alcohol use, and that he may not be able to meet his care needs alone at home. Appears to be tolerating escitalopram. Continues to complain of initial insomnia on mirtazapine 7.5 mg. It's important to note that pt attributes his drinking to his need to use alcohol for sleep, and that he's previously reported no benefit from any medication he's been prescribed for sleep. Has now been started on ergocalciferol after 25-OH vitamin D level was found to be 11.6 ng/mL. BP has fairly consistently been elevated. Hospitalists had stopped his antihypertensives. Will resume lisinopril and consider resuming clonidine. : Pt is psychiatrically unstable and requires psychiatric admission for stab ilization and safety, as well as medication adjustment. (1) Depression, unspecified (2) Alcohol use disorder, severe, dependence (1) Depression, unspecified: (2) Alcohol use disorder, severe, dependence: (3) Vitamin D deficiency: Plan The patient was admitted to the [facility] ([facility] unit) on q15 min checks (behavioral with suicide precautions) for safety. The patient will participate in group, recreational, and milieu therapies and will be offered additional individual and family sessions as clinically appropriate. 10/19/2022: * encourage alcohol EZRA treatment * continue to encourage consideration of oral naltrexone trial * continue escitalopram 20 mg daily * continue mirtazapine 15 mg QHS (for sleep) * continue lisinopril 20 mg daily * continue ergocalciferol 50,000 IU twice weekly for 8 weeks * continue gabapentin 300 mg BID (as anticonvulsant) * continue levetiracetam 500 mg PID (as anticonvulsant) * anticipate discharge tomorrow 10/18/2022: * investigate options for alcohol EZRA treatment * continue to encourage consideration of oral naltrexone trial * continue escitalopram 20 mg daily * continue mirtazapine 15 mg QHS (for sleep) * continue lisinopril 20 mg daily * continue ergocalciferol 50,000 IU twice weekly for 8 weeks * continue gabapentin 300 mg BID (as anticonvulsant) * continue levetiracetam 500 mg PID (as anticonvulsant) * A private room no longer appears medically necessary 10/17/2025: * await Occupational Therapy assessment of pt's ability perform ADL's and of the likelihood that he can safely live alone * continue escitalopram 20 mg daily * continue mirtazapine 15 mg QHS (for sleep) * continue lisinopril 20 mg daily * continue ergocalciferol 50,000 IU twice weekly for 8 weeks * continue gabapentin 300 mg BID (as anticonvulsant) * continue levetiracetam 500 mg PID (as anticonvulsant) * A private room remains medically necessary for the safety of self and others due to his irritability and cerebellar ataxia 10/16/2022: * request Occupational Therapy assessment of pt's ability perform ADL's and of the likelihood that he can safely live alone * continue escitalopram 20 mg daily * increase mirtazapine to 15 mg QHS (for sleep) * resume lisinopril 20 mg daily * continue ergocalciferol 50,000 IU twice weekly for 8 weeks * continue gabapentin 300 mg BID (as anticonvulsant) * continue levetiracetam 500 mg PID (as anticonvulsant) * A private room remains medically necessary for the safety of self and others due to his irritability and cerebellar ataxia 10/15/2022: * strive to obtain information from pt's outpatient therapist (if, in fact, he has one) * continue escitalopram 20 mg daily * continue mirtazapine 7.5 mg QHS (for sleep) * ergocalciferol 50,000 IU twice weekly for 8 weeks * continue gabapentin 300 mg BID (as anticonvulsant) * continue levetiracetam 500 mg PID (as anticonvulsant) * A private room remains medically necessary for the safety of self and others due to his irritability and cerebellar ataxia Inventory Assets Strengths: voluntary Needs: safety and stabilization, medication adjustment, additional coping skills, increased outpatient services, case management Suicide Risk Level Suicide Risk Level: Low (q15 min observation checks) Suicide Risk Level Comments: reports no current suicidal thoughts Risk Factors Assessment Male: Yes : Yes Do You Have Access To A Gun?: No Health Problems: Yes Mental Health Diagnoses: Yes Substance Use Disorders: Yes Previous Attempt: No Previous Psychiatric Hospitalization: No Protective Factors Assessment : No Employed: No Stable Relationships: No Interval History Identifying Information AIDA CANELA is a 57-year-old M who currently lives alone, has a history of alcohol dependence, and was admitted on 10/14/22 16:21 on a 201 voluntary commitment for suicidal thoughts. Chief Complaint "I'm not sure I want to go to that place". Review of Systems Sleep Information Total Hours of Sleep: 4 Sleep Comments: Received Vistaril for difficulty sleeping Meal Information Percent Meal Consumed - Breakfast: 50 Percent Meal Consumed - Lunch: 100 Percent Meal Consumed - Dinner: 75 Subjective Subjective Patient was seen & assessed and interval progress reviewed in a multidisciplinary team meeting with the treatment team. For details, see the "Impression" section below. Physical Exam Psychiatric Orientation: alert, oriented to person, oriented to place, oriented to time and cooperative (superficially) Apperance: appropriately dressed and appropriately groomed; + did not appear stated age (appears older than stated age) Eye Contact: + fair eye contact Motor Behavior: + unsteady gait or station (cerebellar ataxia, antalgic gait) Speech: normal rate/rhythm/volume of speech Affect: + constricted affect Mood: + anxious mood and + dysphoric mood Thought Process: + concrete thought process Thought Content: + preoccupation (financial strains), + cognitive distortions and + persecution (bank account "maybe being drained" by others) Suicidal Thoughts: denies suicidal thoughts, denies suicidal plan and denies suicidal intent Homicidal Thoughts: denies homicidal thoughts (mentioned vague thoughts he "could have killed 50 asians" at the bus stop) Hallucinations: + visual hallucinations ("maybe"); no auditory hallucinations and no tactile hallucinations Cognition: language grossly intact; + recent memory not intact, + remote memory not intact and + attention not intact Estimated Intelligence: average estimated intelligence Insight: + poor insight Judgment: + limited judgement Vital Signs (Past 24 Hours) Last Vital Signs Temp 36.6 C 10/19/22 06:37 Pulse 63 10/19/22 06:38 Resp 16 10/19/22 06:37 BP 156/91 H 10/19/22 06:38 Pulse Ox 96 10/14/22 17:44 O2 Del Method Room Air 10/14/22 17:44 Results & Data ([facility]) Current Inpatient Medications Current Inpatient Medications: Current Inpatient Medications Al Hydrox/Mg Hydrox/Simethicone (Aluminum/Magnesium Susp 30 Ml Udc) 30 ml PO Q4H PRN PRN Reason: GI Upset Stop: 11/13/22 15:26 Allopurinol (Allopurinol 100 Mg Tab) 100 mg PO DAILY [facility] Stop: 11/14/22 08:59 Last Admin: 10/19/22 09:40 Dose: 100 mg Bismuth Subsalicylate (Bismuth Subsalicylate Liqd 236 Ml) 15 ml PO PRN PRN PRN Reason: Loose Stool Stop: 11/13/22 15:26 Clonidine HCl (Clonidine Hcl 0.1 Mg Tab) 0.1 mg PO BID [facility] Stop: 11/17/22 20:59 Last Admin: 10/19/22 09:40 Dose: 0.1 mg Ergocalciferol (Ergocalciferol 50,000 Units 1250 Mcg Cap) 50,000 units PO SuWe@0900 [facility] Stop: 11/14/22 12:59 Last Admin: 10/18/22 09:09 Dose: 50,000 units Escitalopram Oxalate (Escitalopram Oxalate 20 Mg Tab) 20 mg PO QAM MARGARET Stop: 11/14/22 08:59 Last Admin: 10/19/22 09:40 Dose: 20 mg Gabapentin (Gabapentin 300 Mg Cap) 300 mg PO BID [facility] Stop: 11/13/22 20:59 Last Admin: 10/19/22 09:40 Dose: 300 mg Hydroxyzine HCl (Hydroxyzine Hcl 25 Mg Tab) 50 mg PO HSZ PRN PRN Reason: Insomnia Stop: 11/13/22 15:26 Last Admin: 10/16/22 01:09 Dose: 50 mg Hydroxyzine HCl (Hydroxyzine Hcl 25 Mg Tab) 25 mg PO Q4H PRN PRN Reason: Anxiety Stop: 11/13/22 15:26 Ibuprofen (Ibuprofen 600 Mg Tab) 600 mg PO QID PRN PRN Reason: Pain Stop: 11/13/22 20:59 Last Admin: 10/18/22 20:23 Dose: 600 mg Levetiracetam (Levetiracetam 500 Mg Tab) 500 mg PO BID MARGARET Stop: 11/13/22 20:59 Last Admin: 10/19/22 09:40 Dose: 500 mg Lisinopril (Lisinopril 20 Mg Tab) 20 mg PO QAM [facility] Stop: 11/15/22 12:59 Last Admin: 10/19/22 09:40 Dose: 20 mg Magnesium Hydroxide (Magnesium Hydroxide Susp 30 Ml Udc) 30 ml PO DAILY PRN PRN Reason: Constipation Stop: 11/13/22 15:26 Mirtazapine (Mirtazapine Tab 15 Mg Tab) 15 mg PO HS MARGARET Stop: 11/15/22 21:59 Last Admin: 10/18/22 21:27 Dose: 15 mg Miscellaneous (Remove Nicoderm Patch) 1 each N/A DAILY@0859 [facility] Stop: 11/14/22 08:58 Last Admin: 10/19/22 09:40 Dose: 1 each Nicotine (Nicotine 21 Mg/24 Hr Tdsy) 21 mg TD QAM [facility] Stop: 11/14/22 08:59 Last Admin: 10/19/22 09:39 Dose: 21 mg Nicotine Polacrilex (Nicotine Polacrilex 2 Mg Gum) 2 piece MT PRN PRN PRN Reason: nicotine withdrawal Stop: 11/13/22 16:51 Sodium Chloride (Sodium Chloride 0.65% Na Soln 45 Ml ([place])) 1 - 2 sprays NA PRN PRN PRN Reason: Nasal Dryness/Congestion Stop: 11/13/22 15:26 Mental Health & Subst Abuse Tx Therapist Name of Therapist: Valeriano Stuart Ophthalmic Photographer Name of Ophthalmic Photographer: Valeriano Stuart Post Discharge Appointments Primary Care Physician Name Of Family Doctor/PCP: Marina
[2022-10-19] MEDS: MIRTAZAPINE TAB 15 MG TAB PO SCH (20:38)
[2022-10-20] MEDS: cloNIDine HCL 0.1 MG TAB PO SCH ×2 (08:33→20:44)
[2022-10-20] MEDS: allopurinoL 100 MG TAB PO SCH (08:33)
[2022-10-20] MEDS: NICOTINE 21 MG/24 HR TDSY TD SCH (08:34)
[2022-10-20] MEDS: ESCITALOPRAM OXALATE 20 MG TAB PO SCH (08:34)
[2022-10-20] MEDS: GABAPENTIN 300 MG CAP PO SCH ×2 (08:36→20:43)
[2022-10-20] MEDS: lisinopril 20 MG TAB PO SCH (08:37)
[2022-10-20] MEDS: levETIRAcetam 500 MG TAB PO SCH ×2 (08:37→20:44)
--- NOTE | 2022-10-20 13:16 | Psychiatric Progress Note ---
Date of Service October 20, 2022 Impression / Recommendations Impression 57 y/o man with heavy alcohol use history and history of seizure disorder who presents reporting 2 years' depression and intrusive suicidal thoughts in the context of his 's 2 years ago and current severe financial stressors. He's been treated with an SSRI for "depression and anxiety", though it's unclear whether he's evidenced mood symptoms while sober in the past. He appears to have some cognitive impairment consistent with chronic alcohol abuse, previous brain injury, or severe depression. Etiology of depression is unclear - this could represent a major depressive episode, mood disorder with depressive symptoms due to alcohol, mood symptoms due to chronic encephalopathy, or some combination. 10/20/2022: Pt tracked me down yesterday evening and cornered me to inform me that he'd been told "a hospital can't discharge you if you don't have a place to live." I told him that was certainly not the case. He expressed frustration, saying "but that's the only reason I came in the first place!" Has continued to expect the team to come up with housing for him, though he's exhausted all the options his [facility] casework specialist has been able to identify over the past 3 years. He's also been dismissive of the rehab options open to him with his funding source. One facility that we think would be a good option might have a bed available Sunday. Continues to voice high frustration and to evidence irritability but has not said he's suicidal and denies this when asked. 10/19/2022: As pt's cognition has cleared, he has become more selective about treatments and has been exhibiting a supercilious attitude towards staff. Has been dismissive of one EZRA facility that might be an option while bemoaning that an option he prefers is not covered by his insurance. Discussed the need to consider seriously the options that are realistically available. Pt no longer voices any suicidal thoughts and now appears capable of managing safely outside the hospital. He does not appear to have any housing options at all. Anticipate discharge tomorrow. I recommend transfer to a EZRA program, but am certainly not going to force this on pt. 10/18/2022: Continues to sleep late in the morning and to nap extensively during the day, then complain of poor sleep at night. In my opinion this subjective insomnia is likely the result of poor sleep hygiene. Having more hypertensive episodes, so plan to resume clonidine. OT evaluation was reassuring in terms of pt's ability to meet his care needs safely at home. They did note that he has no driving license and his car is unregistered so he drives only at night. His cognition appears to be improving slowly, most likely as a result of continued alcohol abstinence while in the hospital. He remains forgetful at times. Discussed the treatment team's recommendation of alcohol EZRA treatment. Pt has "done rehab before" and is open to this, as he thinks he's benefitted in the past. Discussed naltrexone, in which pt is not currently interested. 10/17/2022: Asleep on rounds this morning, a little difficult to awaken, then immediately reports he "can't sleep at all". Confabulates discussion with me last night, doesn't recall the actual discussion we'd had earlier in the day. Still does not remember that he's taking an antidepressant. Tells me with concern about his high blood pressure of "120 over 72" - in fact, it had been much higher and lisinopril was resumed. BP is low-normal (101/67) at this time, suggesting no need to resume clonidine at this time. No longer reports any suicidal thoughts. Remains preoccupied with his numerous losses and medical problems. Treatment team discussed the concern that pt seems unlikely to be able to manage safely at home due to his apparent cognitive impairments. 10/16/2022: Continues to evidence poor short-term memory (still doesn't think he's using any psychiatric medication, for example) and limited awareness of his needs and resources. One example of this is his saying he "can't walk" due to gout (which he has) but being entirely unaware of his cerebellar ataxia and the fact that his gait is unsteady. Poor recall of previous meetings and discussions with me. It seems increasingly likely that he has chronic memory impairment, possibly as a result of heavy chronic alcohol use, and that he may not be able to meet his care needs alone at home. Appears to be tolerating escitalopram. Continues to complain of initial insomnia on mirtazapine 7.5 mg. It's important to note that pt attributes his drinking to his need to use alcohol for sleep, and that he's previously reported no benefit from any medication he's been prescribed for sleep. Has now been started on ergocalciferol after 25-OH vitamin D level was found to be 11.6 ng/mL. BP has fairly consistently been elevated. Hospitalists had stopped his antihypertensives. Will resume lisinopril and consider resuming clonidine. : Pt is psychiatrically unstable and requires psychiatric admission for stabilization and safety, as well as medication adjustment. (1) Depression, unspecified (2) Alcohol use disorder, severe, dependence (1) Depression, unspecified: (2) Alcohol use disorder, severe, dependence: (3) Vitamin D deficiency: Plan [facility]) on q15 min checks (behavioral with suicide precautions) for safety. The patient will participate in group, recreational, and milieu therapies and will be offered additional individual and family sessions as clinically appropriate. 10/20/2022: * continue encourage alcohol EZRA treatment * continue to encourage consideration of oral naltrexone trial * continue escitalopram 20 mg daily * continue mirtazapine 15 mg QHS (for sleep) * continue lisinopril 20 mg daily * continue ergocalciferol 50,000 IU twice weekly for 8 weeks * continue gabapentin 300 mg BID (as anticonvulsant) * continue levetiracetam 500 mg PID (as anticonvulsant) * anticipate discharge when appropriate rehab bed is found, or in 3 days 10/19/2022: * encourage alcohol EZRA treatment * continue to encourage consideration of oral naltrexone trial * continue escitalopram 20 mg daily * continue mirtazapine 15 mg QHS (for sleep) * continue lisinopril 20 mg daily * continue ergocalciferol 50,000 IU twice weekly for 8 weeks * continue gabapentin 300 mg BID (as anticonvulsant) * continue levetiracetam 500 mg PID (as anticonvulsant) * anticipate discharge tomorrow 10/18/2022: * investigate options for alcohol EZRA treatment * continue to encourage consideration of oral naltrexone trial * continue escitalopram 20 mg daily * continue mirtazapine 15 mg QHS (for sleep) * continue lisinopril 20 mg daily * continue ergocalciferol 50,000 IU twice weekly for 8 weeks * continue gabapentin 300 mg BID (as anticonvulsant) * continue levetiracetam 500 mg PID (as anticonvulsant) * A private room no longer appears medically necessary 10/17/2025: * await Occupational Therapy assessment of pt's ability perform ADL's and of the likelihood that he can safely live alone * continue escitalopram 20 mg daily * continue mirtazapine 15 mg QHS (for sleep) * continue lisinopril 20 mg daily * continue ergocalciferol 50,000 IU twice weekly for 8 weeks * continue gabapentin 300 mg BID (as anticonvulsant) * continue levetiracetam 500 mg PID (as anticonvulsant) * A private room remains medically necessary for the safety of self and others due to his irritability and cerebellar ataxia 10/16/2022: * request Occupational Therapy assessment of pt's ability perform ADL's and of the likelihood that he can safely live alone * continue escitalopram 20 mg daily * increase mirtazapine to 15 mg QHS (for sleep) * resume lisinopril 20 mg daily * continue ergocalciferol 50,000 IU twice weekly for 8 weeks * continue gabapentin 300 mg BID (as anticonvulsant) * continue levetiracetam 500 mg PID (as anticonvulsant) * A private room remains medically necessary for the safety of self and others due to his irritability and cerebellar ataxia 10/15/2022: * strive to obtain information from pt's outpatient therapist (if, in fact, he has one) * continue escitalopram 20 mg daily * continue mirtazapine 7.5 mg QHS (for sleep) * ergocalciferol 50,000 IU twice weekly for 8 weeks * continue gabapentin 300 mg BID (as anticonvulsant) * continue levetiracetam 500 mg PID (as anticonvulsant) * A private room remains medically necessary for the safety of self and others due to his irritability and cerebellar ataxia Inventory Assets Strengths: voluntary Needs: safety and stabilization, medication adjustment, additional coping skills, increased outpatient services, case management Suicide Risk Level Suicide Risk Level: Low (q15 min observation checks) Suicide Risk Level Comments: reports no current suicidal thoughts Risk Factors Assessment Male: Yes : Yes Do You Have Access To A Gun?: No Health Problems: Yes Mental Health Diagnoses: Yes Substance Use Disorders: Yes Previous Attempt: No Previous Psychiatric Hospitalization: No Protective Factors Assessment : No Employed: No Stable Relationships: No Interval History Identifying Information AIDA CANELA is a 57-year-old M who currently lives alone, has a history of alcohol dependence, and was admitted on 10/14/22 16:21 on a 201 voluntary commitment for suicidal thoughts. Chief Complaint "I just don't see how you could discharge me if I don't have a place to go". Review of Systems Sleep Information Total Hours of Sleep: 6.75 Sleep Comments: Received Vistaril for difficulty sleeping Meal Information Percent Meal Consumed - Breakfast: 10 Percent Meal Consumed - Lunch: 100 Percent Meal Consumed - Dinner: 40 Subjective Subjective Patient was seen & assessed and interval progress reviewed in a multidisciplinary team meeting with the treatment team. For details, see the "Impression" section below. Physical Exam Psychiatric Orientation: alert, oriented to person, oriented to place, oriented to time and cooperative (superficially) Apperance: appropriately dressed and appropriately groomed; + did not appear stated age (appears older than stated age) Eye Contact: + fair eye contact Motor Behavior: + unsteady gait or station (mild cerebellar ataxia, mild antalgic gait - has minimal difficulty) Speech: normal rate/rhythm/volume of speech Affect: + irritable affect Mood: + irritable mood Thought Process: + concrete thought process Thought Content: + preoccupation (financial strains) Suicidal Thoughts: denies suicidal thoughts, denies suicidal plan and denies suicidal intent Homicidal Thoughts: denies homicidal thoughts Hallucinations: no auditory hallucinations, no visual hallucinations and no tactile hallucinations Cognition: recent memory grossly intact, remote memory grossly intact and language grossly intact Estimated Intelligence: average estimated intelligence Insight: + poor insight Judgment: + limited judgement Vital Signs (Past 24 Hours) Last Vital Signs Temp 36.6 C 10/20/22 06:43 Pulse 64 10/20/22 06:43 Resp 16 10/20/22 06:43 BP 96/64 L 10/20/22 06:43 Pulse Ox 96 10/14/22 17:44 O2 Del Method Room Air 10/14/22 17:44 Results & Data ([facility]) Current Inpatient Medications Current Inpatient Medications: Current Inpatient Medications Al Hydrox/Mg Hydrox/Simethicone (Aluminum/Magnesium Susp 30 Ml Udc) 30 ml PO Q4H PRN PRN Reason: GI Upset Stop: 11/13/22 15:26 Allopurinol (Allopurinol 100 Mg Tab) 100 mg PO DAILY MARGARET Stop: 11/14/22 08:59 Last Admin: 10/20/22 08:33 Dose: 100 mg Bismuth Subsalicylate (Bismuth Subsalicylate Liqd 236 Ml) 15 ml PO PRN PRN PRN Reason: Loose Stool Stop: 11/13/22 15:26 Clonidine HCl (Clonidine Hcl 0.1 Mg Tab) 0.1 mg PO BID PENDING SALE TO [facility] Stop: 11/17/22 20:59 Last Admin: 10/20/22 08:33 Dose: 0.1 mg Ergocalciferol (Ergocalciferol 50,000 Units 1250 Mcg Cap) 50,000 units PO SuWe@0900 PENDING SALE TO [facility] Stop: 11/14/22 12:59 Last Admin: 10/18/22 09:09 Dose: 50,000 units Escitalopram Oxalate (Escitalopram Oxalate 20 Mg Tab) 20 mg PO QAM PENDING SALE TO [facility] Stop: 11/14/22 08:59 Last Admin: 10/20/22 08:34 Dose: 20 mg Gabapentin (Gabapentin 300 Mg Cap) 300 mg PO BID PENDING SALE TO [facility] Stop: 11/13/22 20:59 Last Admin: 10/20/22 08:36 Dose: 300 mg Hydroxyzine HCl (Hydroxyzine Hcl 25 Mg Tab) 50 mg PO HSZ PRN PRN Reason: Insomnia Stop: 11/13/22 15:26 Last Admin: 10/16/22 01:09 Dose: 50 mg Hydroxyzine HCl (Hydroxyzine Hcl 25 Mg Tab) 25 mg PO Q4H PRN PRN Reason: Anxiety Stop: 11/13/22 15:26 Ibuprofen (Ibuprofen 600 Mg Tab) 600 mg PO QID PRN PRN Reason: Pain Stop: 11/13/22 20:59 Last Admin: 10/18/22 20:23 Dose: 600 mg Levetiracetam (Levetiracetam 500 Mg Tab) 500 mg PO BID PENDING SALE TO [facility] Stop: 11/13/22 20:59 Last Admin: 10/20/22 08:37 Dose: 500 mg Lisinopril (Lisinopril 20 Mg Tab) 20 mg PO QAM PENDING SALE TO [facility] Stop: 11/15/22 12:59 Last Admin: 10/20/22 08:37 Dose: 20 mg Magnesium Hydroxide (Magnesium Hydroxide Susp 30 Ml Udc) 30 ml PO DAILY PRN PRN Reason: Constipation Stop: 11/13/22 15:26 Mirtazapine (Mirtazapine Tab 15 Mg Tab) 15 mg PO HS MARGARET Stop: 11/15/22 21:59 Last Admin: 10/19/22 20:38 Dose: 15 mg Miscellaneous (Remove Nicoderm Patch) 1 each N/A DAILY@0859 MARGARET Stop: 11/14/22 08:58 Last Admin: 10/20/22 08:33 Dose: 1 each Nicotine (Nicotine 21 Mg/24 Hr Tdsy) 21 mg TD QAM MARGARET Stop: 11/14/22 08:59 Last Admin: 10/20/22 08:34 Dose: 21 mg Nicotine Polacrilex (Nicotine Polacrilex 2 Mg Gum) 2 piece MT PRN PRN PRN Reason: nicotine withdrawal Stop: 11/13/22 16:51 Sodium Chloride (Sodium Chloride 0.65% Na Soln 45 Ml ([place])) 1 - 2 sprays NA PRN PRN PRN Reason: Nasal Dryness/Congestion Stop: 11/13/22 15:26 Mental Health & Subst Abuse Tx Therapist Name of Therapist: Valeriano Stuart Soaker Name of Soaker: Valeriano Stuart Post Discharge Appointments Primary Care Physician Name Of Family Doctor/PCP: Marina
[2022-10-20] MEDS: MIRTAZAPINE TAB 15 MG TAB PO SCH (20:44)
[2022-10-20] MEDS: IBUPROFEN 600 MG TAB PO PRN (22:07)
[2022-10-21] MEDS: cloNIDine HCL 0.1 MG TAB PO SCH ×2 (09:04→20:45)
[2022-10-21] MEDS: lisinopril 20 MG TAB PO SCH (09:04)
[2022-10-21] MEDS: ESCITALOPRAM OXALATE 20 MG TAB PO SCH (09:04)
[2022-10-21] MEDS: GABAPENTIN 300 MG CAP PO SCH ×2 (09:04→20:45)
[2022-10-21] MEDS: levETIRAcetam 500 MG TAB PO SCH ×2 (09:04→20:45)
[2022-10-21] MEDS: allopurinoL 100 MG TAB PO SCH (09:05)
[2022-10-21] MEDS: NICOTINE 21 MG/24 HR TDSY TD SCH (09:08)
--- NOTE | 2022-10-21 11:28 | Psychiatric Progress Note ---
Date of Service October 21, 2022 Impression / Recommendations Impression 57 y/o man with heavy alcohol use history and history of seizure disorder who presents reporting 2 years' depression and intrusive suicidal thoughts in the context of his 's 2 years ago and current severe financial stressors. He's been treated with an SSRI for "depression and anxiety", though it's unclear whether he's evidenced mood symptoms while sober in the past. He appears to have some cognitive impairment consistent with chronic alcohol abuse, previous brain injury, or severe depression. Etiology of depression is unclear - this could represent a major depressive episode, mood disorder with depressive symptoms due to alcohol, mood symptoms due to chronic encephalopathy, or some combination. 10/21/2022: Reviewed interim progress per Dr. Aguirre's notes. Seems more depressed today, likely due to large component from grief and today being the anniversary of his daughter's . Suspect this may also be why he slept so poorly last night. Denies SI but otherwise limited engagement with interview, prefers to be left alone to rest. Agreeable with plan for residential substance use treatment once bed becomes available. [place] to require inpatient hospitalization until that time given high risk of substance use relapse and worsening of mood symptoms and SI without stable transition plan. (1) Depression, unspecified: (2) Alcohol use disorder, severe, dependence: (3) Vitamin D deficiency: Plan 10/21/2022: Continue current medications and treatment plan. He's not interested in starting naltrexone today. 10/20/2022: * continue encourage alcohol EZRA treatment * continue to encourage consideration of oral naltrexone trial * continue escitalopram 20 mg daily * continue mirtazapine 15 mg QHS (for sleep) * continue lisinopril 20 mg daily * continue ergocalciferol 50,000 IU twice weekly for 8 weeks * continue gabapentin 300 mg BID (as anticonvulsant) * continue levetiracetam 500 mg PID (as anticonvulsant) * anticipate discharge when appropriate rehab bed is found, or in 3 days 10/19/2022: * encourage alcohol EZRA treatment * continue to encourage consideration of oral naltrexone trial * continue escitalopram 20 mg daily * continue mirtazapine 15 mg QHS (for sleep) * continue lisinopril 20 mg daily * continue ergocalciferol 50,000 IU twice weekly for 8 weeks * continue gabapentin 300 mg BID (as anticonvulsant) * continue levetiracetam 500 mg PID (as anticonvulsant) * anticipate discharge tomorrow 10/18/2022: * investigate options for alcohol EZRA treatment * continue to encourage consideration of oral naltrexone trial * continue escitalopram 20 mg daily * continue mirtazapine 15 mg QHS (for sleep) * continue lisinopril 20 mg daily * continue ergocalciferol 50,000 IU twice weekly for 8 weeks * continue gabapentin 300 mg BID (as anticonvulsant) * continue levetiracetam 500 mg PID (as anticonvulsant) * A private room no longer appears medically necessary 10/17/2025: * await Occupational Therapy assessment of pt's ability perform ADL's and of the likelihood that he can safely live alone * continue escitalopram 20 mg daily * continue mirtazapine 15 mg QHS (for sleep) * continue lisinopril 20 mg daily * continue ergocalciferol 50,000 IU twice weekly for 8 weeks * continue gabapentin 300 mg BID (as anticonvulsant) * continue levetiracetam 500 mg PID (as anticonvulsant) * A private room remains medically necessary for the safety of self and others due to his irritability and cerebellar ataxia 10/16/2022: * request Occupational Therapy assessment of pt's ability perform ADL's and of the likelihood that he can safely live alone * continue escitalopram 20 mg daily * increase mirtazapine to 15 mg QHS (for sleep) * resume lisinopril 20 mg daily * continue ergocalciferol 50,000 IU twice weekly for 8 weeks * continue gabapentin 300 mg BID (as anticonvulsant) * continue levetiracetam 500 mg PID (as anticonvulsant) * A private room remains medically necessary for the safety of self and others due to his irritability and cerebellar ataxia 10/15/2022: The patient was admitted to the [facility] ([facility] mental health unit) on q15 min checks (behavioral with suicide precautions) for safety. The patient will participate in group, recreational, and milieu therapies and will be offered additional individual and family sessions as clinically appropriate. * strive to obtain information from pt's outpatient therapist (if, in fact, he has one) * continue escitalopram 20 mg daily * continue mirtazapine 7.5 mg QHS (for sleep) * ergocalciferol 50,000 IU twice weekly for 8 weeks * continue gabapentin 300 mg BID (as anticonvulsant) * continue levetiracetam 500 mg PID (as anticonvulsant) * A private room remains medically necessary for the safety of self and others due to his irritability and cerebellar ataxia Inventory Assets Strengths: voluntary Needs: safety and stabilization, medication adjustment, additional coping skills, increased outpatient services, case management Suicide Risk Level Suicide Risk Level: Low (q15 min observation checks) Suicide Risk Level Comments: reports no current suicidal thoughts, agrees to alert staff if he feels unsafe or requires additional support Risk Factors Assessment Male: Yes : Yes Do You Have Access To A Gun?: No Health Problems: Yes Mental Health Diagnoses: Yes Substance Use Disorders: Yes Previous Attempt: No Previous Psychiatric Hospitalization: No Protective Factors Assessment : No Employed: No Stable Relationships: No Interval History Identifying Information AIDA CANELA is a 57-year-old M who currently lives alone, has a history of alcohol dependence, and was admitted on 10/14/22 16:21 on a 201 voluntary commitment for suicidal thoughts. Chief Complaint "I'm tired". Review of Systems Sleep Information Total Hours of Sleep: 6.25 Sleep Comments: Received Vistaril for difficulty sleeping Meal Information Percent Meal Consumed - Breakfast: 100 Percent Meal Consumed - Lunch: 100 Percent Meal Consumed - Dinner: 100 Subjective Subjective Patient was seen & assessed and interval progress reviewed with treatment team nursing and social work. Lying in bed this morning, reports poor sleep last night. Today is the 12 year anniversary of his daughter's . Limited spontaneous interaction, seems to be combination of fatigue and likely grief. Physical Exam Psychiatric Orientation: alert and oriented x 3 Apperance: appropriately dressed and appropriately groomed; + did not appear stated age (appears older than stated age) Eye Contact: + poor eye contact Motor Behavior: + unsteady gait or station (mild cerebellar ataxia, mild antalgic gait - has minimal difficulty) Speech: normal rate/rhythm/volume of speech Affect: + flat affect Mood: + depressed mood and + irritable mood Thought Process: + concrete thought process (brief) Thought Content: reality based without delusions Suicidal Thoughts: denies suicidal thoughts, denies suicidal plan and denies suicidal intent Homicidal Thoughts: denies homicidal thoughts Hallucinations: no auditory hallucinations, no visual hallucinations and no tactile hallucinations Cognition: recent memory grossly intact, remote memory grossly intact and language grossly intact Estimated Intelligence: average estimated intelligence Insight: + poor insight Judgment: + limited judgement Vital Signs (Past 24 Hours) Last Vital Signs Temp 36.4 C 10/21/22 06:00 Pulse 54 L 10/21/22 06:00 Resp 20 10/21/22 06:00 BP 101/66 10/21/22 06:47 Pulse Ox 96 10/21/22 06:00 O2 Del Method Room Air 10/21/22 06:00 Results & Data ([facility]) Current Inpatient Medications Current Inpatient Medications: Current Inpatient Medications Al Hydrox/Mg Hydrox/Simethicone (Aluminum/Magnesium Susp 30 Ml Udc) 30 ml PO Q4H PRN PRN Reason: GI Upset Stop: 11/13/22 15:26 Allopurinol (Allopurinol 100 Mg Tab) 100 mg PO DAILY [facility] Stop: 11/14/22 08:59 Last Admin: 10/21/22 09:05 Dose: 100 mg Bismuth Subsalicylate (Bismuth Subsalicylate Liqd 236 Ml) 15 ml PO PRN PRN PRN Reason: Loose Stool Stop: 11/13/22 15:26 Clonidine HCl (Clonidine Hcl 0.1 Mg Tab) 0.1 mg PO BID [facility] Stop: 11/17/22 20:59 Last Admin: 10/21/22 09:04 Dose: 0.1 mg Ergocalciferol (Ergocalciferol 50,000 Units 1250 Mcg Cap) 50,000 units PO SuWe@0900 [facility] Stop: 11/14/22 12:59 Last Admin: 10/18/22 09:09 Dose: 50,000 units Escitalopram Oxalate (Escitalopram Oxalate 20 Mg Tab) 20 mg PO QAM [facility] Stop: 11/14/22 08:59 Last Admin: 10/21/22 09:04 Dose: 20 mg Gabapentin (Gabapentin 300 Mg Cap) 300 mg PO BID [facility] Stop: 11/13/22 20:59 Last Admin: 10/21/22 09:04 Dose: 300 mg Hydroxyzine HCl (Hydroxyzine Hcl 25 Mg Tab) 50 mg PO HSZ PRN PRN Reason: Insomnia Stop: 11/13/22 15:26 Last Admin: 10/16/22 01:09 Dose: 50 mg Hydroxyzine HCl (Hydroxyzine Hcl 25 Mg Tab) 25 mg PO Q4H PRN PRN Reason: Anxiety Stop: 11/13/22 15:26 Ibuprofen (Ibuprofen 600 Mg Tab) 600 mg PO QID PRN PRN Reason: Pain Stop: 11/13/22 20:59 Last Admin: 10/20/22 22:07 Dose: 600 mg Levetiracetam (Levetiracetam 500 Mg Tab) 500 mg PO BID [facility] Stop: 11/13/22 20:59 Last Admin: 10/21/22 09:04 Dose: 500 mg Lisinopril (Lisinopril 20 Mg Tab) 20 mg PO QAM [facility] Stop: 11/15/22 12:59 Last Admin: 10/21/22 09:04 Dose: 20 mg Magnesium Hydroxide (Magnesium Hydroxide Susp 30 Ml Udc) 30 ml PO DAILY PRN PRN Reason: Constipation Stop: 11/13/22 15:26 Mirtazapine (Mirtazapine Tab 15 Mg Tab) 15 mg PO HS [facility] Stop: 11/15/22 21:59 Last Admin: 10/20/22 20:44 Dose: 15 mg Miscellaneous (Remove Nicoderm Patch) 1 each N/A DAILY@0859 [facility] Stop: 11/14/22 08:58 Last Admin: 10/21/22 09:05 Dose: 1 each Nicotine (Nicotine 21 Mg/24 Hr Tdsy) 21 mg TD QAM [facility] Stop: 11/14/22 08:59 Last Admin: 10/21/22 09:08 Dose: 21 mg Nicotine Polacrilex (Nicotine Polacrilex 2 Mg Gum) 2 piece MT PRN PRN PRN Reason: nicotine withdrawal Stop: 11/13/22 16:51 Sodium Chloride (Sodium Chloride 0.65% Na Soln 45 Ml ([place])) 1 - 2 sprays NA PRN PRN PRN Reason: Nasal Dryness/Congestion Stop: 11/13/22 15:26 Mental Health & Subst Abuse Tx Therapist Name of Therapist: Valeriano Stuart Grain Farmer Name of Grain Farmer: Valeriano Stuart Post Discharge Appointments Primary Care Physician Name Of Family Doctor/PCP: Marina
[2022-10-21] MEDS: IBUPROFEN 600 MG TAB PO PRN (19:05)
[2022-10-21] MEDS: MIRTAZAPINE TAB 15 MG TAB PO SCH (20:45)
--- NOTE | 2022-10-22 09:10 | Psychiatric Progress Note ---
Date of Service October 22, 2022 Impression / Recommendations Impression 57 y/o man with heavy alcohol use history and history of seizure disorder who presents reporting 2 years' depression and intrusive suicidal thoughts in the context of his 's 2 years ago and current severe financial stressors. He's been treated with an SSRI for "depression and anxiety", though it's unclear whether he's evidenced mood symptoms while sober in the past. He appears to have some cognitive impairment consistent with chronic alcohol abuse, previous brain injury, or severe depression. Etiology of depression is unclear - this could represent a major depressive episode, mood disorder with depressive symptoms due to alcohol, mood symptoms due to chronic encephalopathy, or some combination. 10/22/2022: Continues to present with periods of irritability but was engaged with groups and pleasant on interactions last evening. Today is wanting to stay in bed, only willing to engage briefly. However, denies SI and remains motivated for residential substance use treatment. [place] to require inpatient hospitalization until residential substance use treatment bed is available given high risk of substance use relapse and high potential for worsening of mood symptoms and SI without stable transition plan. (1) Depression, unspecified: (2) Alcohol use disorder, severe, dependence: (3) Vitamin D deficiency: Plan 10/22/2022: Continue current medications and tx plan. He requested to restart prior to admission atorvastatin 40mg qd, reviewed prior to admission medications and confirmed all are correctly ordered. 10/21/2022: Continue current medications and treatment plan. He's not interested in starting naltrexone today. 10/20/2022: * continue encourage alcohol EZRA treatment * continue to encourage consideration of oral naltrexone trial * continue escitalopram 20 mg daily * continue mirtazapine 15 mg QHS (for sleep) * continue lisinopril 20 mg daily * continue ergocalciferol 50,000 IU twice weekly for 8 weeks * continue gabapentin 300 mg BID (as anticonvulsant) * continue levetiracetam 500 mg PID (as anticonvulsant) * anticipate discharge when appropriate rehab bed is found, or in 3 days 10/19/2022: * encourage alcohol EZRA treatment * continue to encourage consideration of oral naltrexone trial * continue escitalopram 20 mg daily * continue mirtazapine 15 mg QHS (for sleep) * continue lisinopril 20 mg daily * continue ergocalciferol 50,000 IU twice weekly for 8 weeks * continue gabapentin 300 mg BID (as anticonvulsant) * continue levetiracetam 500 mg PID (as anticonvulsant) * anticipate discharge tomorrow 10/18/2022: * investigate options for alcohol EZRA treatment * continue to encourage consideration of oral naltrexone trial * continue escitalopram 20 mg daily * continue mirtazapine 15 mg QHS (for sleep) * continue lisinopril 20 mg daily * continue ergocalciferol 50,000 IU twice weekly for 8 weeks * continue gabapentin 300 mg BID (as anticonvulsant) * continue levetiracetam 500 mg PID (as anticonvulsant) * A private room no longer appears medically necessary 10/17/2025: * await Occupational Therapy assessment of pt's ability perform ADL's and of the likelihood that he can safely live alone * continue escitalopram 20 mg daily * continue mirtazapine 15 mg QHS (for sleep) * continue lisinopril 20 mg daily * continue ergocalciferol 50,000 IU twice weekly for 8 weeks * continue gabapentin 300 mg BID (as anticonvulsant) * continue levetiracetam 500 mg PID (as anticonvulsant) * A private room remains medically necessary for the safety of self and others due to his irritability and cerebellar ataxia 10/16/2022: * request Occupational Therapy assessment of pt's ability perform ADL's and of the likelihood that he can safely live alone * continue escitalopram 20 mg daily * increase mirtazapine to 15 mg QHS (for sleep) * resume lisinopril 20 mg daily * continue ergocalciferol 50,000 IU twice weekly for 8 weeks * continue gabapentin 300 mg BID (as anticonvulsant) * continue levetiracetam 500 mg PID (as anticonvulsant) * A private room remains medically necessary for the safety of self and others due to his irritability and cerebellar ataxia 10/15/2022: The patient was admitted to the [facility] ([facility] mental health unit) on q15 min checks (behavioral with suicide precautions) for safety. The patient will participate in group, recreational, and milieu therapies and will be offered additional individual and family sessions as clinically appropriate. * strive to obtain information from pt's outpatient therapist (if, in fact, he has one) * continue escitalopram 20 mg daily * continue mirtazapine 7.5 mg QHS (for sleep) * ergocalciferol 50,000 IU twice weekly for 8 weeks * continue gabapentin 300 mg BID (as anticonvulsant) * continue levetiracetam 500 mg PID (as anticonvulsant) * A private room remains medically necessary for the safety of self and others due to his irritability and cerebellar ataxia Inventory Assets Strengths: voluntary Needs: safety and stabilization, medication adjustment, additional coping skills, increased outpatient services, case management Suicide Risk Level Suicide Risk Level: Low (q15 min observation checks) Suicide Risk Level Comments: reports no current suicidal thoughts, agrees to alert staff if he feels unsafe or requires additional support Risk Factors Assessment Male: Yes : Yes Do You Have Access To A Gun?: No Health Problems: Yes Mental Health Diagnoses: Yes Substance Use Disorders: Yes Previous Attempt: No Previous Psychiatric Hospitalization: No Protective Factors Assessment : No Employed: No Stable Relationships: No Interval History Identifying Information AIDA CANELA is a 57-year-old M who currently lives alone, has a history of alcohol dependence, and was admitted on 10/14/22 16:21 on a 201 voluntary commitment for suicidal thoughts. Chief Complaint "I'm alright". Review of Systems Sleep Information Total Hours of Sleep: 6 Sleep Comments: Meal Information Percent Meal Consumed - Breakfast: 100 Percent Meal Consumed - Lunch: 100 Percent Meal Consumed - Dinner: 60 Subjective Subjective Patient was seen & assessed and interval progress reviewed with treatment team nursing and social work. Was in bed most of the day yesterday but did attend a [employer] group and community meeting late in the day. Less irritability later in the day, pleasant in interactions. This morning more irritable and lying in bed. States his mood is "alright" and that his sleep was "ok". Denies any medication side effects. Requests list of his current medications so he knows what to take when he leaves. Remains motivated for residential substance use treatment. Continues to have stress related to lack of housing. Physical Exam Psychiatric Orientation: alert and oriented x 3 Apperance: appropriately dressed and appropriately groomed; + did not appear stated age (appears older than stated age) Eye Contact: + poor eye contact Motor Behavior: + unsteady gait or station (mild cerebellar ataxia, mild antalgic gait - has minimal difficulty) Speech: normal rate/rhythm/volume of speech Affect: + constricted affect Mood: + anxious mood and + irritable mood Thought Process: + concrete thought process (brief) Thought Content: reality based without delusions Suicidal Thoughts: denies suicidal thoughts, denies suicidal plan and denies suicidal intent Homicidal Thoughts: denies homicidal thoughts Hallucinations: no auditory hallucinations, no visual hallucinations and no tactile hallucinations Cognition: recent memory grossly intact, remote memory grossly intact and language grossly intact Estimated Intelligence: average estimated intelligence Insight: + poor insight Judgment: + limited judgement Vital Signs (Past 24 Hours) Last Vital Signs Temp 36.4 C L 10/22/22 06:00 Pulse 61 10/22/22 06:00 Resp 18 10/22/22 06:00 BP 117/78 10/22/22 07:01 Pulse Ox 97 10/22/22 06:00 O2 Del Method Room Air 10/22/22 06:00 Results & Data ([facility]) Current Inpatient Medications Current Inpatient Medications: Current Inpatient Medications Al Hydrox/Mg Hydrox/Simethicone (Aluminum/Magnesium Susp 30 Ml Udc) 30 ml PO Q4H PRN PRN Reason: GI Upset Stop: 11/13/22 15:26 Allopurinol (Allopurinol 100 Mg Tab) 100 mg PO DAILY [facility] Stop: 11/14/22 08:59 Last Admin: 10/21/22 09:05 Dose: 100 mg Bismuth Subsalicylate (Bismuth Subsalicylate Liqd 236 Ml) 15 ml PO PRN PRN PRN Reason: Loose Stool Stop: 11/13/22 15:26 Clonidine HCl (Clonidine Hcl 0.1 Mg Tab) 0.1 mg PO BID [facility] Stop: 11/17/22 20:59 Last Admin: 10/21/22 20:45 Dose: 0.1 mg Ergocalciferol (Ergocalciferol 50,000 Units 1250 Mcg Cap) 50,000 units PO SuWe@0900 [facility] Stop: 11/14/22 12:59 Last Admin: 10/18/22 09:09 Dose: 50,000 units Escitalopram Oxalate (Escitalopram Oxalate 20 Mg Tab) 20 mg PO QAM [facility] Stop: 11/14/22 08:59 Last Admin: 10/21/22 09:04 Dose: 20 mg Gabapentin (Gabapentin 300 Mg Cap) 300 mg PO BID [facility] Stop: 11/13/22 20:59 Last Admin: 10/21/22 20:45 Dose: 300 mg Hydroxyzine HCl (Hydroxyzine Hcl 25 Mg Tab) 50 mg PO HSZ PRN PRN Reason: Insomnia Stop: 11/13/22 15:26 Last Admin: 10/16/22 01:09 Dose: 50 mg Hydroxyzine HCl (Hydroxyzine Hcl 25 Mg Tab) 25 mg PO Q4H PRN PRN Reason: Anxiety Stop: 11/13/22 15:26 Ibuprofen (Ibuprofen 600 Mg Tab) 600 mg PO QID PRN PRN Reason: Pain Stop: 11/13/22 20:59 Last Admin: 10/21/22 19:05 Dose: 600 mg Levetiracetam (Levetiracetam 500 Mg Tab) 500 mg PO BID [facility] Stop: 11/13/22 20:59 Last Admin: 10/21/22 20:45 Dose: 500 mg Lisinopril (Lisinopril 20 Mg Tab) 20 mg PO QAM [facility] Stop: 11/15/22 12:59 Last Admin: 10/21/22 09:04 Dose: 20 mg Magnesium Hydroxide (Magnesium Hydroxide Susp 30 Ml Udc) 30 ml PO DAILY PRN PRN Reason: Constipation Stop: 11/13/22 15:26 Mirtazapine (Mirtazapine Tab 15 Mg Tab) 15 mg PO HS [facility] Stop: 11/15/22 21:59 Last Admin: 10/21/22 20:45 Dose: 15 mg Miscellaneous (Remove Nicoderm Patch) 1 each N/A DAILY@0859 [facility] Stop: 11/14/22 08:58 Last Admin: 10/21/22 09:05 Dose: 1 each Nicotine (Nicotine 21 Mg/24 Hr Tdsy) 21 mg TD QAM [facility] Stop: 11/14/22 08:59 Last Admin: 10/21/22 09:08 Dose: 21 mg Nicotine Polacrilex (Nicotine Polacrilex 2 Mg Gum) 2 piece MT PRN PRN PRN Reason: nicotine withdrawal Stop: 11/13/22 16:51 Sodium Chloride (Sodium Chloride 0.65% Na Soln 45 Ml ([place])) 1 - 2 sprays NA PRN PRN PRN Reason: Nasal Dryness/Congestion Stop: 11/13/22 15:26 Mental Health & Subst Abuse Tx Therapist Name of Therapist: Valeriano Stuart Assistant Service Manager Name of Assistant Service Manager: Valeriano Stuart Post Discharge Appointments Primary Care Physician Name Of Family Doctor/PCP: Marina
[2022-10-22] MEDS: cloNIDine HCL 0.1 MG TAB PO SCH ×2 (09:20→21:25)
[2022-10-22] MEDS: allopurinoL 100 MG TAB PO SCH (09:20)
[2022-10-22] MEDS: GABAPENTIN 300 MG CAP PO SCH ×2 (09:20→21:25)
[2022-10-22] MEDS: ERGOCALCIFEROL 50,000 UNITS 1250 MCG CAP PO SCH (09:20)
[2022-10-22] MEDS: levETIRAcetam 500 MG TAB PO SCH ×2 (09:20→21:25)
[2022-10-22] MEDS: ESCITALOPRAM OXALATE 20 MG TAB PO SCH (09:20)
[2022-10-22] MEDS: lisinopril 20 MG TAB PO SCH (09:20)
[2022-10-22] MEDS: NICOTINE 21 MG/24 HR TDSY TD SCH (09:21)
[2022-10-22] MEDS: IBUPROFEN 600 MG TAB PO PRN ×2 (12:00→19:58)
[2022-10-22] MEDS: MIRTAZAPINE TAB 15 MG TAB PO SCH (21:25)
[2022-10-23] MEDS: levETIRAcetam 500 MG TAB PO SCH ×2 (08:53→19:09)
[2022-10-23] MEDS: cloNIDine HCL 0.1 MG TAB PO SCH ×2 (08:54→19:08)
[2022-10-23] MEDS: GABAPENTIN 300 MG CAP PO SCH ×2 (08:55→19:09)
[2022-10-23] MEDS: NICOTINE 21 MG/24 HR TDSY TD SCH (08:56)
[2022-10-23] MEDS ORDERED: ESCITALOPRAM OXALATE 20 MG TAB PO SCH (09:00)
[2022-10-23] MEDS ORDERED: lisinopril 20 MG TAB PO SCH (09:00)
[2022-10-23] MEDS ORDERED: allopurinoL 100 MG TAB PO SCH (09:00)
[2022-10-23] MEDS ORDERED: ATORVASTATIN 40 MG TAB PO SCH (09:00)
[2022-10-23] MEDS: IBUPROFEN 600 MG TAB PO PRN (14:24)
--- NOTE | 2022-10-23 15:58 | Psychiatric Progress Note ---
Date of Service October 23, 2022 Impression / Recommendations Impression 57 y/o man with heavy alcohol use history and history of seizure disorder who presents reporting 2 years' depression and intrusive suicidal thoughts in the context of his 's 2 years ago and current severe financial stressors. He's been treated with an SSRI for "depression and anxiety", though it's unclear whether he's evidenced mood symptoms while sober in the past. He appears to have some cognitive impairment consistent with chronic alcohol abuse, previous brain injury, or severe depression. Etiology of depression is unclear - this could represent a major depressive episode, mood disorder with depressive symptoms due to alcohol, mood symptoms due to chronic encephalopathy, or some combination. 10/23/2022: Mood has stabilized and no further SI, prefers to isolate to his room and can be irritable when encouraged to engage but more social with peers today and out of his room most of the day. More motivated to advocate and look into housing options. Residential substance use treatment remains primary plan but if he is not accepted then will move to outpatient IOP for substance use with therapy and medication management resources. Challenge remains lack of housing but there are options available that he prefers not to pursue at this time. Working on disposition planning. (1) Depression, unspecified: (2) Alcohol use disorder, severe, dependence: (3) Vitamin D deficiency: Plan 10/23/2022: Continue current medications and tx plan. 10/22/2022: Continue current medications and tx plan. He requested to restart prior to admission atorvastatin 40mg qd, reviewed prior to admission medications and confirmed all are correctly ordered. 10/21/2022: Continue current medications and treatment plan. He's not interested in starting naltrexone today. 10/20/2022: * continue encourage alcohol EZRA treatment * continue to encourage consideration of oral naltrexone trial * continue escitalopram 20 mg daily * continue mirtazapine 15 mg QHS (for sleep) * continue lisinopril 20 mg daily * continue ergocalciferol 50,000 IU twice weekly for 8 weeks * continue gabapentin 300 mg BID (as anticonvulsant) * continue levetiracetam 500 mg PID (as anticonvulsant) * anticipate discharge when appropriate rehab bed is found, or in 3 days 10/19/2022: * encourage alcohol EZRA treatment * continue to encourage consideration of oral naltrexone trial * continue escitalopram 20 mg daily * continue mirtazapine 15 mg QHS (for sleep) * continue lisinopril 20 mg daily * continue ergocalciferol 50,000 IU twice weekly for 8 weeks * continue gabapentin 300 mg BID (as anticonvulsant) * continue levetiracetam 500 mg PID (as anticonvulsant) * anticipate discharge tomorrow 10/18/2022: * investigate options for alcohol EZRA treatment * continue to encourage consideration of oral naltrexone trial * continue escitalopram 20 mg daily * continue mirtazapine 15 mg QHS (for sleep) * continue lisinopril 20 mg daily * continue ergocalciferol 50,000 IU twice weekly for 8 weeks * continue gabapentin 300 mg BID (as anticonvulsant) * continue levetiracetam 500 mg PID (as anticonvulsant) * A private room no longer appears medically necessary 10/17/2025: * await Occupational Therapy assessment of pt's ability perform ADL's and of the likelihood that he can safely live alone * continue escitalopram 20 mg daily * continue mirtazapine 15 mg QHS (for sleep) * continue lisinopril 20 mg daily * continue ergocalciferol 50,000 IU twice weekly for 8 weeks * continue gabapentin 300 mg BID (as anticonvulsant) * continue levetiracetam 500 mg PID (as anticonvulsant) * A private room remains medically necessary for the safety of self and others due to his irritability and cerebellar ataxia 10/16/2022: * request Occupational Therapy assessment of pt's ability perform ADL's and of the likelihood that he can safely live alone * continue escitalopram 20 mg daily * increase mirtazapine to 15 mg QHS (for sleep) * resume lisinopril 20 mg daily * continue ergocalciferol 50,000 IU twice weekly for 8 weeks * continue gabapentin 300 mg BID (as anticonvulsant) * continue levetiracetam 500 mg PID (as anticonvulsant) * A private room remains medically necessary for the safety of self and others due to his irritability and cerebellar ataxia 10/15/2022: The patient was admitted to the [facility] ([facility] health unit) on q15 min checks (behavioral with suicide precautions) for safety. The patient will participate in group, recreational, and milieu therapies and will be offered additional individual and family sessions as clinically appropriate. * strive to obtain information from pt's outpatient therapist (if, in fact, he has one) * continue escitalopram 20 mg daily * continue mirtazapine 7.5 mg QHS (for sleep) * ergocalciferol 50,000 IU twice weekly for 8 weeks * continue gabapentin 300 mg BID (as anticonvulsant) * continue levetiracetam 500 mg PID (as anticonvulsant) * A private room remains medically necessary for the safety of self and others due to his irritability and cerebellar ataxia Inventory Assets Strengths: voluntary Needs: safety and stabilization, medication adjustment, additional coping skills, increased outpatient services, case management Suicide Risk Level Suicide Risk Level: Low (q15 min observation checks) Suicide Risk Level Comments: reports no current suicidal thoughts, agrees to alert staff if he feels unsafe or requires additional support Risk Factors Assessment Male: Yes : Yes Do You Have Access To A Gun?: No Health Problems: Yes Mental Health Diagnoses: Yes Substance Use Disorders: Yes Previous Attempt: No Previous Psychiatric Hospitalization: No Protective Factors Assessment : No Employed: No Stable Relationships: No Interval History Identifying Information AIDA CANELA is a 57-year-old M who currently lives alone, has a history of alcohol dependence, and was admitted on 10/14/22 16:21 on a 201 voluntary commitment for suicidal thoughts. Chief Complaint "I don't have anywhere to go". Review of Systems Sleep Information Total Hours of Sleep: 5.5 Meal Information Percent Meal Consumed - Breakfast: 85 Percent Meal Consumed - Lunch: 100 Percent Meal Consumed - Dinner: 75 Subjective Subjective Patient was seen & assessed and interval progress reviewed with treatment team nursing and social work. After encouragement this morning came out of his room and participated in one group and then was social with peers playing chess and watching TV. Reports his mood is "fine" and denies SI. Discussed ongoing uncertainty related to residential treatment options as [place], which is one of the only options for treatment, continues to review his appropriateness. Discussed that if this continues we may need to explore alternative outpatient options. His homeless remains a significant stressor for him and feels that his son, dad, nor other family could offer any type of brief support or resources. Reviewed that long waitlist for only local fpc but that there are a few other options including a [facility]-based assisted that offers free housing and food. He is not interested in this but did ask for numbers for homeless fpc resources in other neighboring [facility] which was provided to him as he wanted to call and see about their availability and if an option for an out of county individual. Physical Exam Psychiatric Orientation: alert and oriented x 3 Apperance: appropriately dressed and appropriately groomed; + did not appear stated age (appears older than stated age) Eye Contact: + fair eye contact Motor Behavior: + unsteady gait or station (mild cerebellar ataxia, mild antalgic gait - has minimal difficulty) Speech: normal rate/rhythm/volume of speech Affect: + constricted affect Mood: + anxious mood Thought Process: goal directed thought process Thought Content: reality based without delusions Suicidal Thoughts: denies suicidal thoughts, denies suicidal plan and denies suicidal intent Homicidal Thoughts: denies homicidal thoughts Hallucinations: no auditory hallucinations, no visual hallucinations and no tactile hallucinations Cognition: recent memory grossly intact, remote memory grossly intact and language grossly intact Estimated Intelligence: average estimated intelligence Insight: + poor insight Judgment: + limited judgement Vital Signs (Past 24 Hours) Last Vital Signs Temp 36.5 C 10/23/22 06:38 Pulse 55 L 10/23/22 06:39 Resp 16 10/23/22 06:38 BP 106/72 10/23/22 06:39 Pulse Ox 97 10/22/22 06:00 O2 Del Method Room Air 10/22/22 06:00 Results & Data ([facility]) Current Inpatient Medications Current Inpatient Medications: Current Inpatient Medications Al Hydrox/Mg Hydrox/Simethicone (Aluminum/Magnesium Susp 30 Ml Udc) 30 ml PO Q4H PRN PRN Reason: GI Upset Stop: 11/13/22 15:26 Allopurinol (Allopurinol 100 Mg Tab) 100 mg PO DAILY MARGARET Stop: 11/22/22 08:59 Last Admin: 10/23/22 08:53 Dose: 100 mg Atorvastatin Calcium (Atorvastatin 40 Mg Tab) 40 mg PO QAM MARGARET Stop: 11/22/22 08:59 Last Admin: 10/23/22 08:54 Dose: 40 mg Bismuth Subsalicylate (Bismuth Subsalicylate Liqd 236 Ml) 15 ml PO PRN PRN PRN Reason: Loose Stool Stop: 11/13/22 15:26 Clonidine HCl (Clonidine Hcl 0.1 Mg Tab) 0.1 mg PO BID MARGARET Stop: 11/17/22 20:59 Last Admin: 10/23/22 08:54 Dose: 0.1 mg Ergocalciferol (Ergocalciferol 50,000 Units 1250 Mcg Cap) 50,000 units PO SuWe@0900 [facility] Stop: 11/14/22 12:59 Last Admin: 10/22/22 09:20 Dose: 50,000 units Escitalopram Oxalate (Escitalopram Oxalate 20 Mg Tab) 20 mg PO QAM [facility] Stop: 11/22/22 08:59 Last Admin: 10/23/22 08:54 Dose: 20 mg Gabapentin (Gabapentin 300 Mg Cap) 300 mg PO BID [facility] Stop: 11/21/22 20:59 Last Admin: 10/23/22 08:55 Dose: 300 mg Hydroxyzine HCl (Hydroxyzine Hcl 25 Mg Tab) 50 mg PO HSZ PRN PRN Reason: Insomnia Stop: 11/13/22 15:26 Last Admin: 10/16/22 01:09 Dose: 50 mg Hydroxyzine HCl (Hydroxyzine Hcl 25 Mg Tab) 25 mg PO Q4H PRN PRN Reason: Anxiety Stop: 11/13/22 15:26 Ibuprofen (Ibuprofen 600 Mg Tab) 600 mg PO QID PRN PRN Reason: Pain Stop: 11/13/22 20:59 Last Admin: 10/23/22 14:24 Dose: 600 mg Levetiracetam (Levetiracetam 500 Mg Tab) 500 mg PO BID [facility] Stop: 11/21/22 20:59 Last Admin: 10/23/22 08:53 Dose: 500 mg Lisinopril (Lisinopril 20 Mg Tab) 20 mg PO DAILY [facility] Stop: 11/22/22 08:59 Last Admin: 10/23/22 08:56 Dose: 20 mg Magnesium Hydroxide (Magnesium Hydroxide Susp 30 Ml Udc) 30 ml PO DAILY PRN PRN Reason: Constipation Stop: 11/13/22 15:26 Mirtazapine (Mirtazapine Tab 15 Mg Tab) 15 mg PO HS [facility] Stop: 11/21/22 21:59 Last Admin: 10/22/22 21:25 Dose: 15 mg Miscellaneous (Remove Nicoderm Patch) 1 each N/A DAILY@0859 [facility] Stop: 11/14/22 08:58 Last Admin: 10/23/22 08:52 Dose: 1 each Nicotine (Nicotine 21 Mg/24 Hr Tdsy) 21 mg TD QAM [facility] Stop: 11/14/22 08:59 Last Admin: 10/23/22 08:56 Dose: 21 mg Nicotine Polacrilex (Nicotine Polacrilex 2 Mg Gum) 2 piece MT PRN PRN PRN Reason: nicotine withdrawal Stop: 11/13/22 16:51 Sodium Chloride (Sodium Chloride 0.65% Na Soln 45 Ml ([place])) 1 - 2 sprays NA PRN PRN PRN Reason: Nasal Dryness/Congestion Stop: 11/13/22 15:26 Mental Health & Subst Abuse Tx Therapist Name of Therapist: Valeriano Stuart Nicu Rn Name of Nicu Rn: Valeriano Stuart Post Discharge Appointments Primary Care Physician Name Of Family Doctor/PCP: Marina
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
[2022-10-23] MEDS: MIRTAZAPINE TAB 15 MG TAB PO SCH (19:09)
== END 2022-10-23 19:40 | disposition home or self-care (01) | DRG 881 ==
LOC: 3S 16:21 → SUATTDRO 16:21